=== PATIENT | male | born 2000 | race Caucasian/White ===

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

== ENCOUNTER 2024-10-23 18:14 | Emergency (ER) | payer OTHER, SELFPAY ==
--- NOTE | 2024-10-23 18:15 | ED.URI ---
HPI - URI/Sore Throat General Chief Complaint: Upper Respiratory Infection Stated Complaint: Flu Symptoms Time Seen by Provider: 10/23/24 18:15 Source: patient Mode of arrival: ambulatory Limitations: no limitations History of Present Illness HPI Narrative: Patient is a 24-year-old male who presents with nausea, vomiting and diarrhea today along with the fever. Father had influenza last week. Denies any congestion, sore throat, cough ear pain. Related Data Home Medications ?Medication ?Instructions ?Recorded ?Confirmed ?Last Taken ?Type bupropion HCl 300 mg 24 hr tablet, mg PO 10/23/24 Unknown History extended release semaglutide (weight loss) 2.4 mg subcut 10/23/24 Unknown History mg/0.75 mL subcutaneous pen injector (Wegovy) Allergies Allergy/AdvReac Type Severity Reaction Status Date / Time No Known Allergies Allergy Verified 10/23/24 18:17 Review of Systems Review of Systems: All systems reviewed & are unremarkable except as noted in HPI and below Constitutional: Constitutional: Denies body ache(s), Denies chills, Denies fatigue, Reports fever(s), Denies headache(s), Denies malaise and Denies weakness Eyes: Eyes: Denies blurry vision, Denies itchy eyes and Denies loss of vision ENT: Denies otalgia, Denies headache(s), Denies nasal congestion, Denies sinus pain and Denies sore throat Cardiovascular: Cardiovascular: Denies chest pain, Denies irregular heart rhythm and Denies dyspnea Respiratory: Respiratory: Denies cough and Denies dyspnea Gastrointestinal: Gastrointestinal: Denies abdominal pain, Reports diarrhea, Reports nausea and Reports vomiting Musculoskeletal: Musculoskeletal: Denies back pain, Denies myalgias and Denies arthralgias Integumentary/Breasts: Skin/Breast: Denies pruritus and Denies rash Neurologic: Denies headache(s), Denies loss of vision and Denies weakness Psychiatric: Psychiatric: Reports no additional psychiatric complaints Endocrine: Endocrine: Denies fatigue Allergic/Immunologic: Allergic/Immunologic: Denies itchy eyes PMFSH Past Medical History Medical History Morbid obesity with body mass index of 40.0-44.9 in adult [place] Encounter to establish care Social History Social History Social History: Caffeine-coffee/soda, energy drinks and pre-workout Smoking status: Never smoker Alcohol intake: never Do You Feel Safe in your Home?: Yes Lack of Transportation: No Lack of Food: Never True Current Housing: I Have Housing Concerned About Future Housing: No Difficulty Paying Gas/Electric Bills: No Difficulty Paying for Meds: No Currently Unemployed: No Education: High School Diploma/GED Difficulty w/ Childcare or Family Care: No Comments At time of signature, agree with nursing past medical, surgical, social and family history. There is no relevant family history pertinent to the presenting complaint. Exam Const: General: cooperative, healthy appearing, comfortable, no acute distress and well nourished Nutritional Appearance: well nourished Orientation/consciousness: patient oriented x3 Limitations: no limitations HENMT: Head: normal to inspection, normocephalic and atraumatic Ears: hearing grossly normal bilaterally, external ears normal, TM's normal bilaterally, EAC's normal and no periauricular adenopathy Face/Nose/Sinus: Normal external nose present, Abnormal mucous membranes and turbinates present erythematous bilateral and diffuse, normal facial exam, sinuses nontender and face symmetric Face and sinus: normal facial exam, sinuses nontender and face symmetric Mouth: Yes Normal oral and palatal mucosa present, Yes lip normal, Yes tongue normal, Yes Normal salivary glands and ducts present, Yes oropharynx normal and Yes moist mucous membranes Teeth and gingiva: dentition normal Throat: posterior oropharynx normal, tonsils normal and uvula midline Eyes: General: appearance normal, both eyes and all related structures Alignment and Position: alignment normal and position normal Periorbital: periorbital findings normal Eyelids: eyelids normal Pupils: Equal, round and reactive pupils present Neck: Neck: normal visual inspection, full ROM, no lymphadenopathy and supple Chest: Chest palpation & inspection: normal inspection of the chest and normal palpation of entire chest wall Resp: Effort & Inspection: normal respiratory effort and able to speak in complete sentences Auscultation: clear to auscultation bilaterally, no crackles, no rales, no rhonchi and no wheezes Cardio: Rate: tachycardic Rhythm: regular rhythm Heart sounds: S1 normal heart sound present and S2 normal heart sound present GI: Inspection: normal to inspection Skin: General skin exam: normal color and no rashes or lesions noted Neuro: General: patient oriented x3 and moves all extremities Cranial nerves: Yes Equal, round and reactive pupils present Speech: normal speech Gait exam (Neuro): Normal gait present Extrem: General: normal to inspection, full ROM and no edema Psych: Appearance: grossly normal and well kempt Mental Status: mental status grossly normal Speech and movement: Normal speech and movement present Affect: normal affect Attitude: cooperative Thought process: Normal thought process present Course Course Emergency Course: Discharge instructions reviewed with patient, as well as provided in writing per nursing staff. The instructions also include specific and strict return/GO TO THE ER as well as f/u information. All questions have been answered, and the patient deny any further questions with discharge and discharge plan. Portions of this record may have been created with voice recognition software Level of Care: Express Care Visit Vital Signs Vital signs: Vital Signs Temperature 36.6 C 10/23/24 18:28 Pulse Rate 105 H 10/23/24 18:28 Respiratory Rate 16 10/23/24 18:28 Blood Pressure 130/64 10/23/24 18:28 Pulse Oximetry 97 10/23/24 18:28 Temperature 36.6 C 10/23/24 18:28 Pulse Rate 105 H 10/23/24 18:28 Respiratory Rate 16 10/23/24 18:28 Blood Pressure 130/64 10/23/24 18:28 Pulse Oximetry 97 10/23/24 18:28 Reviewed MDM - URI/Sore Throat MDM Narrative Medical decision making narrative: Pt well hydrated appearing, in no respiratory distress, hemodynamically stable. Recommend supportive care. The patient is stable at time of discharge the clinical impression was discussed and the patient was given the opportunity to ask questions, which were addressed as completely as possible given the information available at present. Anticipatory guidance and return to care precautions were discussed and the importance of primary care follow-up was stressed and encouraged. The patient voiced understanding of the plan, indications to return, and the need for follow-up. Differential diagnosis considered: Tran virus, strep pharyngitis, allergic rhinitis, upper respiratory tract infection, sinusitis, rhinosinusitis, nasopharyngitis. viral pharyngitis, otitis media, otitis externa, otitis effusion, foreign body, cerumen impaction, viral syndrome, and influenza.? Exam findings show no acute concerns or changes; patient is non-toxic appearing and is in no distress.? Patient is appropriate for outpatient treatment and follow-up.? Differential Diagnosis Differential diagnosis: Likely other (Gastroenteritis) Medical Records Attestation: I reviewed the patient's medical records. Lab Data Attestation: I reviewed the patient's lab results. Labs: Lab Results 10/23/24 Range/Units 18:42 POC Influenza A Ag Negative (Negative) POC Influenza B Ag Negative (Negative) POC SARS CoV-2 Ag Negative (Negative) Discharge Plan Discharge Clinical Impression: Gastroenteritis Patient Disposition: Home, Self-Care Condition: Stable Instructions: Gastroenteritis (ED) Additional Instructions: Stay hydrated. Take small sips of fluid containing electrolytes frequently(Body [place], Gatorade, Powerade, liquid IV). Eat small meals that her very bland including bananas, applesauce, rice, toast, boiled or grilled chicken, soup. Do not eat anything fried, spicy or overly acidic. You should go to the hospital if you experience return of persistent nausea and vomiting that does not resolve and does not allow you to tolerate any food or fluids, persistent fevers for greater than 2-3 more days, increasing abdominal pain that persists despite medications, persistent diarrhea, dizziness, syncope (fainting), or for any other concerns. Patient Language: Lithuanian Prescriptions: New dicyclomine 20 mg tablet 20 mg PO QID 7 Days Qty: 28 0RF ondansetron 4 mg tablet,disintegrating 4 mg PO Q6-8H PRN (Reason: nausea and vomiting) Qty: 7 0RF No Action bupropion HCl 300 mg tablet extended release 24 hr PO Wegovy 2.4 mg/0.75 mL pen injector SUBCUT sertraline 100 mg tablet 200 mg PO DAILY Qty: 180 1RF Follow-up/Referrals: Anson Aleman DO [Primary Care Provider] - 3 Days Stand Alone Forms: Work/School Release IP Time of Disposition: 18:55
[2024-10-23 18:28] VITALS: BP 130/64; PULSE 105; RESP 16; TEMP 36.6; O2SAT 97
[2024-10-23 18:43] LABS: EDCOVIDSCREEN Negative (Negative); EDINFLUASCREEN Negative (Negative); EDINFLUBSCREEN Negative (Negative)
== END 2024-10-23 18:57 | disposition home or self-care (01) ==
PROVIDERS: Emergency Provider Nurse Practitioner Family; PCP Internal Medicine
DX: K52.9 Noninfective gastroenteritis and colitis, unspecified (principal); Z20.822 Contact with and (suspected) exposure to COVID-19; E66.01 Morbid (severe) obesity due to excess calories; Z68.41 Body mass index [BMI] 40.0-44.9, adult
CPT/HCPCS: 87426; 87804; 99213; G0463

== ENCOUNTER 2024-11-20 14:28 | Emergency (ER) | payer OTHER, SELFPAY ==
[2024-11-20 14:30] VITALS: BP 129/83; PULSE 86; RESP 21; TEMP 36.7; O2SAT 99
--- NOTE | 2024-11-20 14:31 | ED_ITS ---
HPI - URI/Sore Throat General Chief Complaint: Upper Respiratory Infection Stated Complaint: Flu Symptoms Source: patient and RN notes reviewed Mode of arrival: ambulatory Limitations: no limitations History of Present Illness HPI Narrative: Patient is a 24-year-old male who presents to the [facility] with multiple complaints. Patient reports congestion, cough, and fever that has been ongoing since yesterday. He endorses a frequent nonproductive cough that is occasionally productive with green sputum. States that he will have intermittent shortness of breath with the cough. Denies chest pain. Patient a lso endorses generalized body aches, headache, and sore throat. He is unsure of any known sick contacts. Related Data Home Medications ?Medication ?Instructions ?Recorded ?Confirmed ?Last Taken ?Type bupropion HCl 300 mg 24 hr tablet, mg PO 10/23/24 Unknown History extended release Allergies Allergy/AdvReac Type Severity Reaction Status Date / Time No Known Allergies Allergy Verified 11/20/24 14:30 Review of Systems Review of Systems: CONSTITUTIONAL: Reports fever, chills, and sweats. EYES: Denies visual changes, redness, or discharge. ENT: Denies otalgia. Reports sore throat. CARDIOVASCULAR: Denies chest pain, palpitations, or edema. RESPIRATORY: Reports cough and intermittent dyspnea. GASTROINTESTINAL: Denies abdominal pain, nausea, vomiting, or diarrhea. GENITOURINARY: Denies dysuria or hematuria. SKIN: Denies rash or itching. MUSCULOSKELETAL: Denies back pain, joint pain, but reports myalgia. NEUROLOGIC: Reports headache but denies numbness or weakness. Pertinent positives per HPI. [facility] Past Medical History Medical History Morbid obesity with body mass index of 40.0-44.9 in adult [place] Encounter to establish care Social History Social History Social History: Caffeine-coffee/soda, energy drinks and pre-workout Smoking status: Never smoker Alcohol intake: never Do You Feel Safe in your Home?: Yes Lack of Transportation: No Lack of Food: Never True Current Housing: I Have Housing Concerned About Future Housing: No Difficulty Paying Gas/Electric Bills: No Difficulty Paying for Meds: No Currently Unemployed: No Education: High School Diploma/GED Difficulty w/ Childcare or Family Care: No Comments At the time of my signature, I reviewed and agree with the nursing past medical, surgical, social, and family history. There is no relevant family history pertinent to the patient complaint. Exam Narrative: GENERAL: This is a well-nourished, well-developed patient, in no apparent distress. HEAD: normocephalic, atraumatic. EYES: Sclera clear/white. Vision is grossly intact. EARS: External ears normal. Hearing grossly intact. NOSE: External nose normal with no obvious nasal discharge, nares without redness, no rhinorrhea. THROAT: Mucous membranes moist, posterior pharynx clear. NECK: Neck supple, non-tender without lymphadenopathy, masses or thyromegaly. CARDIOVASCULAR: Regular rate and rhythm without murmurs, gallops, or rubs. RESPIRATORY: Clear to auscultation. Breath sounds equal bilaterally. No wheezes, rales, or rhonchi. GASTROINTESTINAL: Abdomen soft, non-tender, nondistended. Bowel sounds are active. No hepato-splenomegaly, or palpable masses. No guarding. SKIN: warm, intact with no suspicious lesions or rash, good texture and turgor. NEURO: awake, alert, and oriented to person, place and time. There were no obvious focal neurologic abnormalities. Course Course Level of Care: Express Care Visit Vital Signs Vital signs: Vital Signs Temperature 98.1 F 11/20/24 14:30 Pulse Rate 86 11/20/24 14:30 Respiratory Rate 21 H 11/20/24 14:30 Blood Pressure 129/83 11/20/24 14:30 Pulse Oximetry 99 11/20/24 14:30 Oxygen Delivery Room Air 11/20/24 14:30 Temperature 98.1 F 11/20/24 14:30 Pulse Rate 86 11/20/24 14:30 Respiratory Rate 21 H 11/20/24 14:30 Blood Pressure 129/83 11/20/24 14:30 Pulse Oximetry 99 11/20/24 14:30 Oxygen Delivery Room Air 11/20/24 14:32 Reviewed MDM - URI/Sore Throat MDM Narrative Medical decision making narrative: COVID-19 DISCHARGE The following recommendations have been made by the CDC and local Health Departments, regarding COVID-19: If You Test Positive for COVID-19 (Isolate) Everyone, regardless of vaccination status. Stay home for 5 days. If you have no symptoms or your symptoms are resolving after 5 days, you can leave your house. Continue to wear a mask around others for 5 additional days. If you have a fever, continue to stay home until your fever resolves. Those individuals with mild cases of COVID-19 can generally be discontinued from isolation, 10 days AFTER the onset of symptoms AND the resolution of fever for 24hrs (without the use of fever-reducing medications) Those individuals who were asymptomatic, and tested positive, are discontinued from isolation 10 days AFTER their first positive COVID-19 test Those individuals with SEVERE to CRITICAL illness or immunocompromised diseases may require up to 20 days of home isolation or hospitalization Majority of mild to moderate cases can be treated at home, without hospitalization or prescription medications You do not need a negative test result to return to work/school, assuming the ab ove recommendations have been met and you are not symptomatic. At this time, return to work/school notes will not be provided. Guidelines from the local Health Department, CDC, and workplace are expected to be followed. All individuals in the household need to remained quarantined for up to 14 days if asymptomatic OR 10 days after the start of symptoms. Everyone in the home DOES NOT require testing, they are presumed positive and should quarantine as directed. Treating symptoms for mild to moderate cases may include: Tylenol, Flonase/nasal spray, OTC cold/flu medications recommended from your provider or any necessary prescription medications provided at your visit or from your PCP You may be sent for PCR testing as an outpatient to the [place] testing site Common Adult Symptoms: Fever/chills Cough Shortness of breath Fatigue, muscle aches Headache Loss of taste/smell Sore throat, congestion, runny nose GI symptoms (nausea, vomiting, diarrhea) Common Pediatric Symptoms Cough Fever GI symptoms (diarrhea, upset stomach, nausea, vomiting) Symptoms may differ in severity however, most cases do not require hospitalization. WHEN TO SEEK ER EVALUATION/TREATMENT Severe/persistent shortness of breath or difficulty breathing Elevated, persistent fevers without resolution with fever-reducing medications Chest pain Extreme fatigue/lethargy Complications of pre-existing disease Differential Diagnosis Differential diagnosis: Likely upper respiratory infection, viral infection, influenza and other (covid) Lab Data Attestation: I reviewed the patient's lab results. Labs: Lab Results 11/20/24 11/20/24 Range/Units 14:45 14:46 POC Influenza A Ag Negative (Negative) POC Influenza B Ag Negative (Negative) POC SARS CoV-2 Ag Positive (Negative) Critical Care Time Critical Care Time Critical Care Time: No Discharge Plan Discharge Clinical Impression: COVID Patient Disposition: Home, Self-Care Condition: Stable Instructions: COVID-19 (Coronavirus Disease 2019) (ED) Additional Instructions: COVID-19 DISCHARGE The following recommendations have been made by the CDC and local Health Departments, regarding COVID-19: If You Test Positive for COVID-19 (Isolate) Everyone, regardless of vaccination status. Stay home for 5 days. If you have no symptoms or your symptoms are resolving after 5 days, you can leave your house. Continue to wear a mask around others for 5 additional days. If you have a fever, continue to stay home until your fever resolves. Those individuals with mild cases of COVID-19 can generally be discontinued from isolation, 10 days AFTER the onset of symptoms AND the resolution of fever for 24hrs (without the use of fever-reducing medications) Those individuals who were asymptomatic, and tested positive, are discontinued from isolation 10 days AFTER their first positive COVID-19 test Those individuals with SEVERE to CRITICAL illness or immunocompromised diseases may require up to 20 days of home isolation or hospitalization Majority of mild to moderate cases can be treated at home, without hospitalization or prescription medications You do not need a negative test result to return to work/school, assuming the above recommendations have been met and you are not symptomatic. At this time, return to work/school notes will not be provided. Guidelines from the local Health Department, CDC, and workplace are expected to be followed. All individuals in the household need to remained quarantined for up to 14 days if asymptomatic OR 10 days after the start of symptoms. Everyone in the home DOES NOT require testing, they are presumed positive and should quarantine as directed. Treating symptoms for mild to moderate cases may include: Tylenol, Flonase/nasal spray, OTC cold/flu medications recommended from your provider or any necessary prescription medications provided at your visit or from your PCP You may be sent for PCR testing as an outpatient to the [facility] site Common Adult Symptoms: Fever/chills Cough Shortness of breath Fatigue, muscle aches Headache Loss of taste/smell Sore throat, congestion, runny nose GI symptoms (nausea, vomiting, diarrhea) Common Pediatric Symptoms Cough Fever GI symptoms (diarrhea, upset stomach, nausea, vomiting) Symptoms may differ in severity however, most cases do not require hospitalization. WHEN TO SEEK ER EVALUATION/TREATMENT Severe/persistent shortness of breath or difficulty breathing Elevated, persistent fevers without resolution with fever-reducing medications Chest pain Extreme fatigue/lethargy Complications of pre-existing disease Patient Language: Irish Prescriptions: No Action bupropion HCl 300 mg tablet extended release 24 hr PO sertraline 100 mg tablet 200 mg PO DAILY Qty: 180 1RF Zepbound 7.5 mg/0.5 mL pen injector 7.5 mg subcut WEEKLY Qty: 2 0RF Follow-up/Referrals: Lillian Crowley, [employer] [Primary Care Provider] - Stand Alone Forms: Work/School Release IP Time of Disposition: 15:08
[2024-11-20 14:47] LABS: EDCOVIDSCREEN Positive (Negative)
[2024-11-20 14:48] LABS: EDINFLUASCREEN Negative (Negative); EDINFLUBSCREEN Negative (Negative)
== END 2024-11-20 15:11 | disposition home or self-care (01) ==
PROVIDERS: Emergency Provider Nurse Practitioner; PCP Clinical Nurse Specialist
DX: U07.1 COVID-19 (principal); E66.01 Morbid (severe) obesity due to excess calories; Z68.38 Body mass index [BMI] 38.0-38.9, adult
CPT/HCPCS: 87426; 87804; 99212; G0463

== ENCOUNTER 2025-01-18 00:49 | Day surgery (SDC) | payer OTHER, SELFPAY ==
[2025-01-10 13:11] VITALS: BMI 38.0
--- NOTE | 2025-01-10 13:18 | PC.NURSE ---
Report to the Outpatient Waiting Room, entrance under the green pavilion located off [facility], at time _1000_ on date _[id number]_. Planned Procedure Time: _1200_.? Time changes happen often and if your time is changed the preop area will call you the afternoon before. - You and your visitor will be asked to self-screen and do not enter if you have any COVID symptoms. Please call surgeon if you need to reschedule. - A mask is optional within the hospital at this time. Patients may have clear liquids (water, carbonated beverages, clear teas, apple juice) until 3 hours prior to surgery with a maximum of 20 ounces. - No food from midnight until time of surgery and no smoking, or chewing tobacco (or any form of nicotine). No chewing gum, candy or mints. Take only the following medications with a SIP of water on the morning of surgery: __Bupropion and Lamotragine DO NOT STOP ANY OF YOUR OTHER PRESCRIPTION MEDICATIONS PRIOR TO SURGERY EXCEPT THE FOLLOWING Hold all vitamins and supplements for 3 days per anesthesiologist. Medications to discontinue per physician __Wegovy Date to take last dose___Hold until after surgery____ Please no make-up, nail setswana, hairspray, perfume, deodorant, or body powder the day of surgery.? No jewelry (including any body piercings) or valuables the day of surgery, leave them at home.? Please take a shower or bath the night before, or the morning of, surgery with an antibacterial soap.? Wear comfortable, loose fitting clothing.? - Jewelry must be removed prior to entering the operating room.? Rings and piercings that are not removed may be cut off. - The hospital will not accept responsibility for valuables.? - Please leave all valuables, including medications, at home the day of surgery. If you are going home after surgery, a licensed charter bus driver must drive you home.? - NO public transportation without another adult if you receive anesthesia. - We recommend that an adult stay with you for 24 hours following discharge. - We also recommend that you do not drive, make important decision, drink alcoholic beverages, or take any drugs that were not prescribed by your health care provider for at least 24 hours after your discharge time. Follow any additional instructions given to you from your surgeon. Telephone instructions given to __Ori___and asked if any additional questions and then verbalized understanding. Patient advised to call surgeon office or pre surgery nurse liaison [phone] if any additional questions.
[2025-01-18] VITALS (9 sets, daily range): BP systolic 109–141; BP diastolic 53–80; PULSE 78–99; RESP 15–20; TEMP 36.3–36.5; O2SAT 97–100
--- OUTSIDE RECORDS SUMMARY | 2025-01-18 00:51 | XMS_ITS | Patient Health Record ---
Author Organization [facility] Address [address] [facility] [address] [place] [address] Care Team Providers Care Gambling Floor Supervisor Name Role Phone JUAN DUNCAN-RATNA Forbes Primary Care Provider Martinez Wong Unavailable [phone] Allergies No Known Allergies Results Component Value Reference Range Notes UDT Reviewed date:07/06/2024 05:03:32 PM Interpretation: Performing Lab: Notes/Report: THC Positive 0 - 50 ng/ml Cocaine Negative 0 - 300 ng/ml Amphetamine Negative 0 - 1000 ng/ml Buprenorphine (BUP) Negative 0 - 10 ng/ml Secobarbital (Bar) Negative 0 - 300 ng/ml Oxazepam (BZO) Negative 0 - 300 ng/ml 0-irsrpmpzjb-2,8-plttmjmf-1, 3-dipheny lpyrrolidine (EDDP) Negative 0 - 300 ng/ml Methamphetamine (MET) Negative 0 - 1000 ng/ml Methylenedioxymethamphetamine (MDMA) Negative 0 - 500 ng/ml Morphine (MOP 300/[id number]) Negative 0 - 300 ng/ml Methadone (MTD) Negative 0 - 300 ng/ml Phencyclidine (PCP) Negative 0 - 25 ng/ml Nortriptyline (TCA) Negative 0 - 1000 ng/ml Oxycodone Negative 0 - 300 ng/ml x Negative 0 - 300 ng/ml UDT Reviewed date:08/02/2024 04:43:39 PM Interpretation: Performing Lab: Notes/Report: THC POS 0 - 50 ng/ml Cocaine NEG 0 - 300 ng/ml Amphetamine NEG 0 - 1000 ng/ml Buprenorphine (BUP) NEG 0 - 10 ng/ml Secobarbital (Bar) NEG 0 - 300 ng/ml Oxazepam (BZO) NEG 0 - 300 ng/ml 7-kzlgpdnkhd-0,6-izlkrlni-5, 3-dipheny lpyrrolidine (EDDP) NG 0 - 300 ng/ml Methamphetamine (MET) NEG 0 - 1000 ng/ml Methylenedioxymethamphetamine (MDMA) NEG 0 - 500 ng/ml Morphine (MOP 300/[id number]) NEG 0 - 300 ng/ml Methadone (MTD) NEG 0 - 300 ng/ml Phencyclidine (PCP) NEG 0 - 25 ng/ml Nortriptyline (TCA) NEG 0 - 1000 ng/ml Oxycodone NEG 0 - 300 ng/ml x NEG 0 - 300 ng/ml DRUG MONITOR, MARIJUANA META B, QN, URINE ([id number]) Reviewed date:11/20/2024 03:56:56 PM Interpretation: Performing Lab:[facility], [facility] [address] [facility]esfaye villatoroOgrcWK[address] Ramin Grajeda, Director - [id number] [address]-Webber Notes/Report: FASTING: NO Marijuana Metabolite 10 <5 ng/mL Marijuana Comments See Sherri randolph Notes, LDT Notes Notes and Comments This drug testing is for medical treatment only. Analysis was performed as non-forensic testing and these results should be used only by healthcare providers to render diagnosis or treatment, or to monitor progress of medical conditions. Marijuana Notes: Marijuana Metabolite detected is consistent with exposure to Marijuana (THC) and/or hemp derived products. Some jurisdictions do not include hemp within the definition of Marijuana. LDT Notes: Confirmation tests were developed and their analytical performance characteristics have been determined by [facility]. It has not been cleared or approved by the FDA. This assay has been validated pursuant to the CLIA regulations and is used for clinical purposes. Healthcare Providers needing Interpretation assistance, please contact us at [phone] ( ) M-F, 8am to 10pm EST Reason For Referral No Information Medications Medication SIG (Take, Route, Frequency, Duration) Notes Start Date End Date Status buPROPion HCl ER (XL) 300 MG 1 tablet in the morning Orally Once a day for 90 days Active Wegovy 2.4 MG/0.75ML 0.75 mL Subcutaneou s weekly Active lamoTRIgine 100 MG 1 tablet Orally Once a day for 30 days Active hydrOXYzine Pamoate 25 MG 1 capsule Orally Once a day As needed Active Social History Tobacco Use: Social History Observation Description Date Details (start date - stop date) Never Smoker 08/16/2024 - NA Sex Assigned At : Social History Observation Description Sex Assigned At Male Tobacco Control (Standard) Question Answer Notes Tobacco use: Nonsmoker When did you start smoking? 08/16/2024 AUDIT-C (Standard) Question Answer Notes Did you have a drink contain ing alcohol in the past year? Yes How often did you have six o r more drinks on one occasion in the past year? 2 to 3 times per week (3 points) How many drinks did you have on a typical day when you were drinking in the past year? 5 or 6 drinks (2 points) How often did you have a dri nk containing alcohol in the past year? Daily or almost daily (4 points) Points 9 Interpretation Negative Problems Problem Type SNOMED Code ICD Code Onset Dates Problem Status W/U Status Risk Notes Problem Generalized anxiety disorder (84673669) EFE (generalized anxiety disorder) (F41.1) Active confirmed Problem 78377342 Severe episode of recurrent major depressive disorder, without psychotic features (F33.2) Active confirmed Problem 05506301 MDD (major depressive disorder), recurrent episode, moderate (F33.1) Active confirmed Problem 164088751 MDD (major depressive disorder), recurrent episode, mild (F33.0) Active confirmed Problem 88431231 MDD (recurrent major depressive disorder) in remission (F33.40) Active confirmed Problem 602677903 Marijuana use (F12.90) Active confirmed Problem 12942447 Anxiety (F41.9) Active confirmed Problem Severe major depression, single episode, without psychotic features (71473093) MDD (major depressive disorder), severe (F32.2) Active confirmed Vital Signs Heart Rate 81 /min 01/01/2025 Temperature 97.7 degrees Fahrenheit 07/06/2024 Blood pressure diastolic 70 mm Hg 01/01/2025 Weight-kg 150.32 kg 01/01/2025 Blood pressure systolic 111 mm Hg 01/01/2025 Weight 331.4 lbs 01/01/2025 Encounters Encounter Location Date Provider Diagnosis [facility] [employer] [facility] [address] [address] 07/06/2024 Martinez Zaldivar EFE (generalized anxiety disorder) F41.1 ; MDD (major depressive disorder), severe F32.2 and Marijuana use F12.90 [facility] [employer] [facility], [facility] [address] [place] [address] 07/23/2024 Martinez Clubb EFE (generalized anxiety disorder) F41.1 and MDD (major depressive disorder), severe F32.2 [facility] [employer] [facility] [address] [place] [address] 08/02/2024 Martinez Clubb EFE (generalized anxiety disorder) F41.1 and MDD (major depressive disorder), recurrent episode, moderate F33.1 [facility] [employer] [facility] [address] [place] [address] 08/22/2024 Martinez Clubb MDD (major depressiv e disorder), recurrent episode, moderate F33.1 and Anxiety F41.9 [facility] [employer] [facility], [facility] [address] [place] [address] 09/20/2024 Martinez Clubb MDD (recurrent major depressive disorder) in remission F33.40 and Anxiety F41.9 [facility] [employer] [facility] [address] [place] [address] 11/08/2024 Martinez Clubb Severe episode of recurrent major depressive disorder, without psychotic features F33.2 ; Suicidal ideations R45.851 and Anxiety F41.9 [facility] [employer] [facility] [address] [place] [address] 11/14/2024 Martinez Clubb Anxiety F41.9 and MD D (major depressive disorder), recurrent episode, mild F33.0 [facility] [employer] [facility] [address] [place] [address] 12/04/2024 Martinez Clubb Anxiety F41.9 and MD D (major depressive disorder), recurrent episode, mild F33.0 [facility] [employer] [facility] [address] [place] [address] 01/01/2025 Martinez Clubb Encounter for screening for depression Z13.31 ; Anxiety F41.9 and MDD (major depressive disorder), recurrent episode, mild F33.0 [facility] [employer] [facility] [address] [place] [address] 07/28/2024 Martinez Clubb [employer] [facility] [address] [place] [address] 07/29/2024 Martinez Clubb [facility] [address] [place] [address] 07/30/2024 Martinez Clubb [facility] [address] [place] [address] 07/30/2024 Martinez Clubb [facility] [address] [place] [address] 07/30/2024 Martinez Clubb [facility] [address] [place] [address] 09/04/2024 Martinez Clubb [facility] [address] [place] [address] 09/04/2024 Martinez Clubb [facility], [facility] [address] [place] [address] 09/04/2024 Martinez Clubb [facility] [address] [place] [address] 10/23/2024 Martinez Clubb [facility], [facility] [address] [place] [address] 10/30/2024 Martinez Clubb [facility] [address] [place] [address] 10/30/2024 [facility] [address] [place] [address] 11/06/2024 Martinez Clubb [facility] [address] [place] [address] 11/06/2024 Martinez Clubb [facility] [address] [place] [address] 11/08/2024 Martinez Clubb [facility] [address] [place] [address] 11/08/2024 Martinez Clubb [facility] [address] [place] [address] 11/08/2024 Martinez Clubb [facility] [address] [place] [address] 11/14/2024 Martinez Clubb [facility], [facility] [address] [place] [address] 12/22/2024 Martinez Clubb MDD (major depressiv e disorder), recurrent episode, mild F33.0 [facility] [employer] [facility] [address] [place] [address] 12/24/2024 Martinez Clubb [facility] [employer] [facility] [address] [place] [address] 12/31/2024 Martinez Fitzgerald Assessments Encounter Date Diagnosis (ICD Code) Assessment Notes Treatment Notes Treatment Clinical Notes Section Notes 07/06/2024 EFE (generalized anxiety disorder) (ICD-10 - F41.1) 1. Generalized Anxiety Disorder (EFE) - Current anxiety level: 07/19 - Panic attacks: four in the past week - Plan: a. Continue sertraline 200 mg daily b. Start propranolol 10 mg as needed, up to three times a day for anxiety management - Instruct to check pulse before taking propranolol; if below 60 bpm, do not take c. Encourage use of hydroxyzine HCL during initiation of anxiety to prevent panic attacks 2. Major Depressive Disorder (MDD) - Current depression level: 07/19 - Symptoms: hypersomnia, loss of appetite, difficulty concentrating, irritability, passive suicidal thoughts, self-harm (cutting leg two weeks ago) - Plan: a. Restart bupropion at 75 mg short-acting daily b. Gradually increase bupropion dose as tolerated c. Monitor for irritability and depressive symptoms d. If irritability recurs, consider switching to Rexulti 3. Family History of Mental Health Issues - Mother, sister, and grandmother with EFE and depression - Plan: Instruct patient to gather information on family members' medications to guide treatment 4. Substance Use - Marijuana use: almost every night from dispensary and vape shop - Alcohol use: occasional - No new substance use reported - Plan: Monitor substance use and discuss potential impact on mental health 5. Medication Management - Currently on Wegovy for over a year - Recently discontinued bupropion due to irritability and increased depressive symptoms - Plan: Reassess medication effectiveness and side effects at follow-ups Follow-up: - Schedule follow-up in two weeks to assess response to medication adjustments and monitor symptoms - Encourage use of Leeo yoselin for direct provider communication 11/14/2024 MDD (major depressive disorder), recurrent episode, mild (ICD-10 - F33.0) Lamotrigine may cause rashes, including serious rashes that may need to be treated in a hospital or cause permanent disability or . Tell your doctor if you are taking valproic acid (Depakene) or divalproex (Depakote) because taking these medications with lamotrigine may increase your risk of developing a serious rash. Also tell your doctor if you have ever developed a rash after taking lamotrigine or any other medication for epilepsy or if you are allergic to any medications for epilepsy. Your doctor will start you on low dose of lamotrigine and gradually increase your dose, not more than once every 1 to 2 weeks. You may be more likely to develop a serious rash if you take a higher starting dose or increase your dose faster than your doctor tells you that you should. Your first doses of medication may be packaged in a starter kit that will clearly show you the right amount of medication to take each day during the first 5 weeks of your treatment. This will help you to follow your doctor's instructions as your dose is slowly increased. Be sure to take lamotrigine exactly as directed. Do not take more or less of it or take it more often than prescribed by your doctor. Serious rashes usually develop during the first 2 to 8 weeks of treatment with lamotrigine, but can develop at any time during treatment. If you develop any of the following symptoms while you are taking lamotrigine, call your doctor immediately: rash; blistering or peeling of the skin; hives; itching; or painful sores in your mouth or around your eyes. Talk to your doctor about the risks of taking lamotrigine or of giving lamotrigine to your child. Children 2-17 years of age who take lamotrigine are more likely to develop serious rashes than adults who take the medication. Your doctor or pharmacist will give you the visual presentation manager's patient information sheet (Medication Guide) when you begin treatment with lamotrigine and each time you refill your prescription. Read the information carefully and ask your doctor or pharmacist if you have any questions. You can also visit the Food and Drug Administration (FDA) website (https://www.fda .gov/Drugs/DrugS afety/ktm644724. htm) or the visual presentation manager's website to obtain the Medication Guide. Assessment and plan reviewed with patient Call for problems with medication, side effects or need for dosage change Compliance issues reviewed Discussed the risks/benefits of this medication Discussed medication side effects Return if symptoms worsen Treatment options reviewed. discussed that it can take weeks to see full therapeutic effects of psychotropic medications. discussed when to seek emergency services. discussed crisis prevention hotline [phone]. Patient had reduction in suicidal ideation and/or behavior upon follow-up assessment within 120 days of index assessment (M1357) 11/14/2024 Anxiety (ICD-10 - F41.9) Patient had reduction in suicidal ideation and/or behavior upon follow-up assessment within 120 days of index assessment (M1357) 07/06/2024 MDD (major depressive disorder), severe (ICD-10 - F32.2) 1. Generalized Anxiety Disorder (EFE) - Current anxiety level: 07/19 - Panic attacks: four in the past week - Plan: a. Continue sertraline 200 mg daily b. Start propranolol 10 mg as needed, up to three times a day for anxiety management - Instruct to check pulse before taking propranolol; if below 60 bpm, do not take c. Encourage use of hydroxyzine HCL during initiation of anxiety to prevent panic attacks 2. Major Depressive Disorder (MDD) - Current depression level: 07/19 - Symptoms: hypersomnia, loss of appetite, difficulty concentrating, irritability, passive suicidal thoughts, self-harm (cutting leg two weeks ago) - Plan: a. Restart bupropion at 75 mg short-acting daily b. Gradually increase bupropion dose as tolerated c. Monitor for irritability and depressive symptoms d. If irritability recurs, consider switching to Rexulti 3. Family History of Mental Health Issues - Mother, sister, and grandmother with EFE and depression - Plan: Instruct patient to gather information on family members' medications to guide treatment 4. Substance Use - Marijuana use: almost every night from dispensary and vape shop - Alcohol use: occasional - No new substance use reported - Plan: Monitor substance use and discuss potential impact on mental health 5. Medication Management - Currently on Wegovy for over a year - Recently discontinued bupropion due to irritability and increased depressive symptoms - Plan: Reassess medication effectiveness and side effects at follow-ups Follow-up: - Schedule follow-up in two weeks to assess response to medication adjustments and monitor symptoms - Encourage use of Leeo yoselin for direct provider communication 07/23/2024 EFE (generalized anxiety disorder) (ICD-10 - F41.1) 1. Major Depressive Disorder - PHQ-9 score improved from 22 to 16. - Positive response to bupropion 75mg and sertraline 200mg adjustment. - Patient reports symptom improvement since reducing stress. - Plan: a. Continue current medications. b. Reassess in 4 weeks. c. Encourage healthy coping strategies and family time. d. Instruct contacting provider or texting [phone] if suicidal thoughts occur. 2. Generalized Anxiety Disorder - EFE score improved from 19 to 17. - Positive response to medication with only 1 panic attack. - - Plan: a. Continue current medications. b. Reassess in 4 weeks. c. Encourage healthy coping like reduced screen/social media time. d. Instruct contacting provider if anxiety worsens or panic attacks increase. 3. Insomnia - Patient reports difficulty with sleep onset and duration. - Melatonin ineffective. - Plan: a. Try hydroxyzine for sleep and combine with melatonin. b. Message provider on yoselin if sleep aid needed. c. Reassess sleep in 4 weeks. 4. Substance Use - Patient ceased marijuana use. - Occasional alcohol use (twice in 2 weeks). - Plan: a. Encourage continued marijuana abstinence. b. Monitor alcohol consumption. c. Discuss importance of sobriety with [facility]'s zero-tolerance policy. 5. Sexual Dysfunction - Patient reports low sex drive and difficulty performing. - Likely due to sertraline and possibly propranolol. - Plan: a. Avoid propranolol if planning for sexual activity. b. Consider Vistaril instead for anxiety. c. Monitor sexual function and discuss potential med adjustments if persists. 6. Follow-Up - Schedule follow-up in 4 weeks to reassess symptoms, medication effectiveness and overall progress. - Patient can come in sooner if needed without appointment.. Patient had reduction in suicidal ideation and/or behavior upon follow-up assessment within 120 days of index assessment (M1357) 07/23/2024 MDD (major depressive disorder), severe (ICD-10 - F32.2) 1. Major Depressive Disorder - PHQ-9 score improved from 22 to 16. - Positive response to bupropion 75mg and sertraline 200mg adjustment. - Patient reports symptom improvement since reducing stress. - Plan: a. Continue current medications. b. Reassess in 4 weeks. c. Encourage healthy coping strategies and family time. d. Instruct contacting provider or texting [phone] if suicidal thoughts occur. 2. Generalized Anxiety Disorder - EFE score improved from 19 to 17. - Positive response to medication with only 1 panic attack. - - Plan: a. Continue current medications. b. Reassess in 4 weeks. c. Encourage healthy coping like reduced screen/social media time. d. Instruct contacting provider if anxiety worsens or panic attacks increase. 3. Insomnia - Patient reports difficulty with sleep onset and duration. - Melatonin ineffective. - Plan: a. Try hydroxyzine for sleep and combine with melatonin. b. Message provider on yoselin if sleep aid needed. c. Reassess sleep in 4 weeks. 4. Substance Use - Patient ceased marijuana use. - Occasional alcohol use (twice in 2 weeks). - Plan: a. Encourage continued marijuana abstinence. b. Monitor alcohol consumption. c. Discuss importance of sobriety with [facility] zero-tolerance policy. 5. Sexual Dysfunction - Patient reports low sex drive and difficulty performing. - Likely due to sertraline and possibly propranolol. - Plan: a. Avoid propranolol if planning for sexual activity. b. Consider Vistaril instead for anxiety. c. Monitor sexual function and discuss potential med adjustments if persists. 6. Follow-Up - Schedule follow-up in 4 weeks to reassess symptoms, medication effectiveness and overall progress. - Patient can come in sooner if needed without appointment.. Patient had reduction in suicidal ideation and/or behavior upon follow-up assessment within 120 days of index assessment (M1357) 08/02/2024 EFE (generalized anxiety disorder) (ICD-10 - F41.1) 1. Major Depressive Disorder - He reports more good days, but bad days still as severe. - Depression rated at 6 out of 10. - Plan: a. Decrease sertraline to 150mg daily for 2 weeks, then to 100mg daily. b. Reassess at next appointment on August 21. 2. Anxiety - Anxiety rated at 4-5 out of 10. - Propranolol not effective for high anxiety moments, only preventing panic attacks. - Plan: a. Discontinue propranolol. b. Continue hydroxyzine for anxiety and sleep. 3. Insomnia - He reports improvement in sleep. - Plan: Continue hydroxyzine as needed for sleep. 4. Sexual Side Effects - He suspects sertraline as the cause. - Plan: a. Monitor effects of reduced sertraline dosage on sexual side effects. b. Consider further reduction or discontinuation if side effects persist. 5. Panic Attacks - He reports experiencing panic attacks. - Plan: Monitor effects of discontinuing propranolol on panic attacks. 6. Difficulty Concentrating - He reports difficulty concentrating. - Plan: Monitor effects of medication adjustments on concentration. 7. Irritability - He reports irritability. - Plan: Monitor effects of medication adjustments on irritability. 8. Medication Refills - Plan: Refill hydroxyzine and sertraline prescriptions. Send to [facility]. 9. Crisis Management - Plan: Remind him of crisis hotline (143) for suicidal thoughts or emergencies. 10. Follow-Up - Appointment scheduled for August 21 to reassess progress and medication adjustments. 08/02/2024 MDD (major depressive disorder), recurrent episode, moderate (ICD-10 - F33.1) Assessment and plan reviewed with patient Call for problems with medication, side effects or need for dosage change Compliance issues reviewed Discussed the risks/benefits of this medication Discussed medication side effects Return if symptoms worsen Treatment options reviewed. discussed that it can take weeks to see full therapeutic effects of psychotropic medications. discussed when to seek emergency services. discussed crisis prevention hotline [phone]. 1. Major Depressive Disorder - He reports more good days, but bad days still as severe. - Depression rated at 6 out of 10. - Plan: a. Decrease sertraline to 150mg daily for 2 weeks, then to 100mg daily. b. Reassess at next appointment on August 21. 2. Anxiety - Anxiety rated at 4-5 out of 10. - Propranolol not effective for high anxiety moments, only preventing panic attacks. - Plan: a. Discontinue propranolol. b. Continue hydroxyzine for anxiety and sleep. 3. Insomnia - He reports improvement in sleep. - Plan: Continue hydroxyzine as needed for sleep. 4. Sexual Side Effects - He suspects sertraline as the cause. - Plan: a. Monitor effects of reduced sertraline dosage on sexual side effects. b. Consider further reduction or discontinuation if side effects persist. 5. Panic Attacks - He reports experiencing panic attacks. - Plan: Monitor effects of discontinuing propranolol on panic attacks. 6. Difficulty Concentrating - He reports difficulty concentrating. - Plan: Monitor effects of medication adjustments on concentration. 7. Irritability - He reports irritability. - Plan: Monitor effects of medication adjustments on irritability. 8. Medication Refills - Plan: Refill hydroxyzine and sertraline prescriptions. Send to [facility]. 9. Crisis Management - Plan: Remind him of crisis hotline (185) for suicidal thoughts or emergencies. 10. Follow-Up - Appointment scheduled for August 21 to reassess progress and medication adjustments. 08/22/2024 MDD (major depressive disorder), recurrent episode, moderate (ICD-10 - F33.1) 1. Depression - PHQ decreased from 22 on 07/06/24 to 11 on 08/22/24. - patient denied suicidal thoughts or thoughts of self-harm - patient reported an improvement in mood since initiation of treatment. plan: continue to maddison off sertraline r/t ED. increase buproprion ER to 300 mg daily. 2. anxeity -EFE decreased from 19 on 07/06/24 to 11 on 08/22/24. plan: - continue hydroxyzine as needed. - d/c propranolol 3. medication management - Continue taking Sertraline 100 mg, with a plan to decrease to 50 mg starting Tuesday, August 27, 2024, for one week, then discontinue. - Increase Bupropion to 300 mg. - Discontinue Propranolol as it is no longer needed. - Continue using Hydroxyzine as needed for sleep, up to twice a week. - Follow up in one month to assess progress and possibly adjust to a 3-month supply of medications. - Consider another urine test for THC levels, strictly as a send-out to ensure accuracy. 5. THC use - Patient reports recent positive THC test for a job at [employer]. - patient denied marijuana use and is requesting a repeat urine drug screen. - Plan: a. Review urine test results. b. Consider sending out for further testing c. Encourage abstinence from THC use. d. Discuss potential impact on mental health and employment opportunities. 6. Follow-up - Schedule follow-up appointment in one month to assess progress and adjust treatment plan if necessary. - If patient is stable at next appointment, consider providing 3-month medication supply. - Patient plans to attend [facility] in the future. 08/22/2024 Anxiety (ICD-10 - F41.9) 1. Depression - PHQ decreased from 22 on 07/06/24 to 11 on 08/22/24. - patient denied suicidal thoughts or thoughts of self-harm - patient reported an improvement in mood since initiation of treatment. plan: continue to maddison off sertraline r/t ED. increase buproprion ER to 300 mg daily. 2. anxeity -EEF decreased from 19 on 07/06/24 to 11 on 08/22/24. plan: - continue hydroxyzine as needed. - d/c propranolol 3. medication management - Continue taking Sertraline 100 mg, with a plan to decrease to 50 mg starting Tuesday, August 27, 2024, for one week, then discontinue. - Increase Bupropion to 300 mg. - Discontinue Propranolol as it is no longer needed. - Continue using Hydroxyzine as needed for sleep, up to twice a week. - Follow up in one month to assess progress and possibly adjust to a 3-month supply of medications. - Consider another urine test for THC levels, strictly as a send-out to ensure accuracy. 5. THC use - Patient reports recent positive THC test for a job at [employer]. - patient denied marijuana use and is requesting a repeat urine drug screen. - Plan: a. Review urine test results. b. Consider sending out for further testing c. Encourage abstinence from THC use. d. Discuss potential impact on mental health and employment opportunities. 6. Follow-up - Schedule follow-up appointment in one month to assess progress and adjust treatment plan if necessary. - If patient is stable at next appointment, consider providing 3-month medication supply. - Patient plans to attend [facility] in the future. 09/20/2024 MDD (recurrent major depressive disorder) in remission (ICD-10 - F33.40) Assessment and plan reviewed with patient Call for problems with medication, side effects or need for dosage change Compliance issues reviewed Discussed the risks/benefits of this medication Discussed medication side effects Return if symptoms worsen Treatment options reviewed. discussed that it can take weeks to see full therapeutic effects of psychotropic medications. discussed when to seek emergency services. discussed crisis prevention hotline [phone]. 1. Depression - Patient reports improvement in depressive symptoms. - Currently on bupropion 300 mg daily. - Goldberg Depression Inventory score: 9 points. - Plan: a. Continue bupropion 300 mg daily. b. Monitor depressive symptoms and adjust medication as needed. c. Encourage engagement in therapy for additional support. 2. Anxiety - Using hydroxyzine as needed for anxiety management. - No refill needed (3-month supply provided by [facility]). - Plan: a. Continue hydroxyzine as needed for anxiety. b. Encourage engagement in therapy for additional support and anxiety management strategies. 3. Substance Use - Patient reports quitting marijuana. - Negative home test result (acknowledges potential residual THC). - Plan: a. Encourage continued abstinence from marijuana use. b. Provide support and resources for maintaining sobriety. 4. Insomnia - No significant sleep disturbances reported. - Plan: Continue monitoring sleep patterns and address issues as needed. 5. Suicidal Ideation - Patient denies thoughts of suicide. - Plan: a. Continue monitoring for suicidal ideation or self-harm behaviors. b. Encourage seeking immediate help if experiencing suicidal thoughts. 09/20/2024 Anxiety (ICD-10 - F41.9) 1. Depression - Patient reports improvement in depressive symptoms. - Currently on bupropion 300 mg daily. - Goldberg Depression Inventory score: 9 points. - Plan: a. Continue bupropion 300 mg daily. b. Monitor depressive symptoms and adjust medication as needed. c. Encourage engagement in therapy for additional support. 2. Anxiety - Using hydroxyzine as needed for anxiety management. - No refill needed (3-month supply provided by [facility]). - Plan: a. Continue hydroxyzine as needed for anxiety. b. Encourage engagement in therapy for additional support and anxiety management strategies. 3. Substance Use - Patient reports quitting marijuana. - Negative home test result (acknowledges potential residual THC). - Plan: a. Encourage continued abstinence from marijuana use. b. Provide support and resources for maintaining sobriety. 4. Insomnia - No significant sleep disturbances reported. - Plan: Continue monitoring sleep patterns and address issues as needed. 5. Suicidal Ideation - Patient denies thoughts of suicide. - Plan: a. Continue monitoring for suicidal ideation or self-harm behaviors. b. Encourage seeking immediate help if experiencing suicidal thoughts. 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 You may need urgent medical care. You may also contact the poison control center at . A specific treatment to reverse the effects of lithium does not exist, but there are treatments to decrease the effects of the medication. Only a doctor can determine if you require treatment. Avoid drinking alcohol or using illegal drugs while you are taking lithium. They may decrease the benefits (e.g., worsen your condition) and increase adverse effects (e.g., sedation) of the medication. Avoid low sodium diets and dehydration because this can increase the risk of lithium toxicity. Avoid over the counter and prescription pain medications that contain nonsteroidal anti-inflammator y medications (NSAIDS) such as ibuprofen (Motrin, Advil) or naproxen (Aleve, Naprosyn) because these medications can increase the risk of toxicity from lithium. Avoid excessive intake of caffeinated beverages, such as coffee, tea, cola or energy drinks, since these may decrease levels of lithium and decrease effectiveness of the medication. Discontinuing caffeine use may increase lithium levels. Consult your health care provider before reducing or stopping caffeine use. What are the possible side effects of lithium? Common side effects Headache Nausea or vomiting Diarrhea Dizziness or drowsiness Changes in appetite Hand tremors Dry mouth Increased thirst Increased urination Thinning of hair or hair loss Acne-like rash Rare/Serious side effects Signs of lithium toxicity include severe nausea and vomiting, severe hand tremors, confusion, vision changes, and unsteadiness while standing or walking. These symptoms need to be addressed immediately with a medical doctor to ensure your lithium level is not dangerously high. In rare cases, lithium may lead to a reversible condition known as diabetes insipidus. If this occurs you would notice a significant increase in thirst and how much fluid you drink and how much you urinate. Talk to your doctor if you notice you are urinating more frequently than usual. Are There Any Risks For Taking [place] For Long Periods Of Time? Hypothyroidism (low levels of thyroid hormone) may occur with long-term lithium use. Rare kidney problems have been associated with long-term use of lithium. The risk increases with high levels of lithium. Your doctor will monitor your kidney function at routine check-ups to ensure this does not occur. Summary of Black Box Warnings [place] Toxicity [place] toxicity is closely related to lithium blood levels and can occur at doses close to therapeutic levels; lithium levels should be monitored closely when starting the medication or if individuals experience side effects of the medication. 12/04/2024 Anxiety (ICD-10 - F41.9) Patient had reduction in suicidal ideation and/or behavior upon follow-up assessment within 120 days of index assessment (M1357). Patient had reduction in suicidal ideation and/or behavior upon follow-up assessment within 120 days of index assessment (M1357) 12/22/2024 MDD (major depressive disorder), recurrent episode, mild (ICD-10 - F33.0) 01/01/2025 Encounter for screening for depression (ICD-10 - Z13.31) Patient had reduction in suicidal ideation and/or behavior upon follow-up assessment within 120 days of index assessment (M1357). Patient had reduction in suicidal ideation and/or behavior upon follow-up assessment within 120 days of index assessment (M1357) 01/01/2025 Anxiety (ICD-10 - F41.9) Patient had reduction in suicidal ideation and/or behavior upon follow-up assessment within 120 days of index assessment (M1357). Patient had reduction in suicidal ideation and/or behavior upon follow-up assessment within 120 days of index assessment (M1357) 11/08/2024 Anxiety (ICD-10 - F41.9) 12/04/2024 MDD (major depressive disorder), recurrent episode, mild (ICD-10 - F33.0) Patient had reduction in suicidal ideation and/or behavior upon follow-up assessment within 120 days of index assessment (M1357). Patient had reduction in suicidal ideation and/or behavior upon follow-up assessment within 120 days of index assessment (M1357) 07/06/2024 Marijuana use (ICD-10 - F12.90) 1. Generalized Anxiety Disorder (EFE) - Current anxiety level: 07/19 - Panic attacks: four in the past week - Plan: a. Continue sertraline 200 mg daily b. Start propranolol 10 mg as needed, up to three times a day for anxiety management - Instruct to check pulse before taking propranolol; if below 60 bpm, do not take c. Encourage use of hydroxyzine HCL during initiation of anxiety to prevent panic attacks 2. Major Depressive Disorder (MDD) - Current depression level: 07/19 - Symptoms: hypersomnia, loss of appetite, difficulty concentrating, irritability, passive suicidal thoughts, self-harm (cutting leg two weeks ago) - Plan: a. Restart bupropion at 75 mg short-acting daily b. Gradually increase bupropion dose as tolerated c. Monitor for irritability and depressive symptoms d. If irritability recurs, consider switching to Rexulti 3. Family History of Mental Health Issues - Mother, sister, and grandmother with EFE and depression - Plan: Instruct patient to gather information on family members' medications to guide treatment 4. Substance Use - Marijuana use: almost every night from dispensary and vape shop - Alcohol use: occasional - No new substance use reported - Plan: Monitor substance use and discuss potential impact on mental health 5. Medication Management - Currently on Wegovy for over a year - Recently discontinued bupropion due to irritability and increased depressive symptoms - Plan: Reassess medication effectiveness and side effects at follow-ups Follow-up: - Schedule follow-up in two weeks to assess response to medication adjustments and monitor symptoms - Encourage use of Leeo yoselin for direct provider communication 01/01/2025 MDD (major depressive disorder), recurrent episode, mild (ICD-10 - F33.0) Patient had reduction in suicidal ideation and/or behavior upon follow-up assessment within 120 days of index assessment (M1357). Patient had reduction in suicidal ideation and/or behavior upon follow-up assessment within 120 days of index assessment (M1357) 07/06/2024 Other Learning About Depression Screening material was printed Assessment and plan reviewed with patient Call for problems with medication, side effects or need for dosage change Compliance issues reviewed Discussed the risks/benefits of this medication Discussed medication side effects Return if symptoms worsen Treatment options reviewed. discussed that it can take weeks to see full therapeutic effects of psychotropic medications. discussed when to seek emergency services. discussed crisis prevention hotline 988. 1. Generalized Anxiety Disorder (EFE) - Current anxiety level: 07/19 - Panic attacks: four in the past week - Plan: a. Continue sertraline 200 mg daily b. Start propranolol 10 mg as needed, up to three times a day for anxiety management - Instruct to check pulse before taking propranolol; if below 60 bpm, do not take c. Encourage use of hydroxyzine HCL during initiation of anxiety to prevent panic attacks 2. Major Depressive Disorder (MDD) - Current depression level: 07/19 - Symptoms: hypersomnia, loss of appetite, difficulty concentrating, irritability, passive suicidal thoughts, self-harm (cutting leg two weeks ago) - Plan: a. Restart bupropion at 75 mg short-acting daily b. Gradually increase bupropion dose as tolerated c. Monitor for irritability and depressive symptoms d. If irritability recurs, consider switching to Rexulti 3. Family History of Mental Health Issues - Mother, sister, and grandmother with EFE and depression - Plan: Instruct patient to gather information on family members' medications to guide treatment 4. Substance Use - Marijuana use: almost every night from dispensary and vape shop - Alcohol use: occasional - No new substance use reported - Plan: Monitor substance use and discuss potential impact on mental health 5. Medication Management - Currently on Wegovy for over a year - Recently discontinued bupropion due to irritability and increased depressive symptoms - Plan: Reassess medication effectiveness and side effects at follow-ups Follow-up: - Schedule follow-up in two weeks to assess response to medication adjustments and monitor symptoms - Encourage use of Leeo yoselin for direct provider communication 07/23/2024 Other Assessment and plan reviewed with patient Call for problems with medication, side effects or need for dosage change Compliance issues reviewed Discussed the risks/benefits of this medication Discussed medication side effects Return if symptoms worsen Treatment options reviewed. discussed that it can take weeks to see full therapeutic effects of psychotropic medications. discussed when to seek emergency services. discussed crisis prevention hotline 988. 1. Major Depressive Disorder - PHQ-9 score improved from 22 to 16. - Positive response to bupropion 75mg and sertraline 200mg adjustment. - Patient reports symptom improvement since reducing stress. - Plan: a. Continue current medications. b. Reassess in 4 weeks. c. Encourage healthy coping strategies and family time. d. Instruct contacting provider or texting [phone] if suicidal thoughts occur. 2. Generalized Anxiety Disorder - EFE score improved from 19 to 17. - Positive response to medication with only 1 panic attack. - - Plan: a. Continue current medications. b. Reassess in 4 weeks. c. Encourage healthy coping like reduced screen/social media time. d. Instruct contacting provider if anxiety worsens or panic attacks increase. 3. Insomnia - Patient reports difficulty with sleep onset and duration. - Melatonin ineffective. - Plan: a. Try hydroxyzine for sleep and combine with melatonin. b. Message provider on yoselin if sleep aid needed. c. Reassess sleep in 4 weeks. 4. Substance Use - Patient ceased marijuana use. - Occasional alcohol use (twice in 2 weeks). - Plan: a. Encourage continued marijuana abstinence. b. Monitor alcohol consumption. c. Discuss importance of sobriety with new job's zero-tolerance policy. 5. Sexual Dysfunction - Patient reports low sex drive and difficulty performing. - Likely due to sertraline and possibly propranolol. - Plan: a. Avoid propranolol if planning for sexual activity. b. Consider Vistaril instead for anxiety. c. Monitor sexual function and discuss potential med adjustments if persists. 6. Follow-Up - Schedule follow-up in 4 weeks to reassess symptoms, medication effectiveness and overall progress. - Patient can come in sooner if needed without appointment.. Patient had reduction in suicidal ideation and/or behavior upon follow-up assessment within 120 days of index assessment (M1357) 08/02/2024 Other patient denied marijuana use but THC + urine sent out for further testing. 1. Major Depressive Disorder - He reports more good days, but bad days still as severe. - Depression rated at 6 out of 10. - Plan: a. Decrease sertraline to 150mg daily for 2 weeks, then to 100mg daily. b. Reassess at next appointment on August 21. 2. Anxiety - Anxiety rated at 4-5 out of 10. - Propranolol not effective for high anxiety moments, only preventing panic attacks. - Plan: a. Discontinue propranolol. b. Continue hydroxyzine for anxiety and sleep. 3. Insomnia - He reports improvement in sleep. - Plan: Continue hydroxyzine as needed for sleep. 4. Sexual Side Effects - He suspects sertraline as the cause. - Plan: a. Monitor effects of reduced sertraline dosage on sexual side effects. b. Consider further reduction or discontinuation if side effects persist. 5. Panic Attacks - He reports experiencing panic attacks. - Plan: Monitor effects of discontinuing propranolol on panic attacks. 6. Difficulty Concentrating - He reports difficulty concentrating. - Plan: Monitor effects of medication adjustments on concentration. 7. Irritability - He reports irritability. - Plan: Monitor effects of medication adjustments on irritability. 8. Medication Refills - Plan: Refill hydroxyzine and sertraline prescriptions. Send to [facility]. 9. Crisis Management - Plan: Remind him of crisis hotline (611) for suicidal thoughts or emergencies. 10. Follow-Up - Appointment scheduled for August 21 to reassess progress and medication adjustments. 08/22/2024 Other Assessment and plan reviewed with patient Call for problems with medication, side effects or need for dosage change Compliance issues reviewed Discussed the risks/benefits of this medication Discussed medication side effects Return if symptoms worsen Treatment options reviewed. discussed that it can take weeks to see full therapeutic effects of psychotropic medications. discussed when to seek emergency services. discussed crisis prevention hotline 988. 1. Depression - PHQ decreased from 22 on 07/06/24 to 11 on 08/22/24. - patient denied suicidal thoughts or thoughts of self-harm - patient reported an improvement in mood since initiation of treatment. plan: continue to maddison off sertraline r/t ED. increase buproprion ER to 300 mg daily. 2. anxeity -EFE decreased from 19 on 07/06/24 to 11 on 08/22/24. plan: - continue hydroxyzine as needed. - d/c propranolol 3. medication management - Continue taking Sertraline 100 mg, with a plan to decrease to 50 mg starting Tuesday, August 27, 2024, for one week, then discontinue. - Increase Bupropion to 300 mg. - Discontinue Propranolol as it is no longer needed. - Continue using Hydroxyzine as needed for sleep, up to twice a week. - Follow up in one month to assess progress and possibly adjust to a 3-month supply of medications. - Consider another urine test for THC levels, strictly as a send-out to ensure accuracy. 5. THC use - Patient reports recent positive THC test for a job at [employer]. - patient denied marijuana use and is requesting a repeat urine drug screen. - Plan: a. Review urine test results. b. Consider sending out for further testing c. Encourage abstinence from THC use. d. Discuss potential impact on mental health and employment opportunities. 6. Follow-up - Schedule follow-up appointment in one month to assess progress and adjust treatment plan if necessary. - If patient is stable at next appointment, consider providing 3-month medication supply. - Patient plans to attend [facility] in the future. 11/08/2024 Other Lamotrigine may cause rashes, including serious rashes that may need to be treated in a hospital or cause permanent disability or . Tell your doctor if you are taking valproic acid (Depakene) or divalproex (Depakote) because taking these medications with lamotrigine may increase your risk of developing a serious rash. Also tell your doctor if you have ever developed a rash after taking lamotrigine or any other medication for epilepsy or if you are allergic to any medications for epilepsy. Your doctor will start you on low dose of lamotrigine and gradually increase your dose, not more than once every 1 to 2 weeks. You may be more likely to develop a serious rash if you take a higher starting dose or increase your dose faster than your doctor tells you that you should. Your first doses of medication may be packaged in a starter kit that will clearly show you the right amount of medication to take each day during the first 5 weeks of your treatment. This will help you to follow your doctor's instructions as your dose is slowly increased. Be sure to take lamotrigine exactly as directed. Do not take more or less of it or take it more often than prescribed by your doctor. Serious rashes usually develop during the first 2 to 8 weeks of treatment with lamotrigine, but can develop at any time during treatment. If you develop any of the following symptoms while you are taking lamotrigine, call your doctor immediately: rash; blistering or peeling of the skin; hives; itching; or painful sores in your mouth or around your eyes. Talk to your doctor about the risks of taking lamotrigine or of giving lamotrigine to your child. Children 2-17 years of age who take lamotrigine are more likely to develop serious rashes than adults who take the medication. Your doctor or pharmacist will give you the visual presentation manager's patient information sheet (Medication Guide) when you begin treatment with lamotrigine and each time you refill your prescription. Read the information carefully and ask your doctor or pharmacist if you have any questions. You can also visit the Food and Drug Administration (FDA) website (https://www.fda .gov/Drugs/DrugS afety/wyn064397. htm) or the visual presentation manager's website to obtain the Medication Guide. 1. Major Depressive Disorder - Patient reports recurring suicidal thoughts without plan or intent. - Depression rated as 8/10. - No history of manic episodes. - Plan: a. Start [place] and Lamotrigine simultaneously. b. Small dose of [place] for one week to address suicidal thoughts. c. Initiate Lamotrigine 25 mg daily for 2 weeks, then increase to 50 mg daily. d. Monitor for side effects, particularly Varghese-Arpit syndrome. e. Advise patient to avoid alcohol while on [place]. f. Schedule follow-up in one week. 2. Anxiety - Patient rates anxiety as 5/10. - Reports difficulty concentrating and irritability. - Plan: a. Monitor response to Lamotrigine for potential improvement. b. Continue weekly therapy c. Reassess symptoms at follow-up. 3. Binge Eating - Patient reports increased appetite and binge eating. - Plan: a. Monitor response to mood stabilizers for potential improvement. b. Encourage balanced diet and consider nutritional counseling. c. Reassess eating habits at follow-up. 4. Substance Use - Patient reports cessation of marijuana use. - Plan: a. Encourage continued abstinence from marijuana and other substances. b. Monitor for potential relapse during follow-ups. 5. Crisis Prevention - Patient is aware of crisis prevention hotline number. - Plan: a. Encourage utilization of crisis prevention resources if needed. b. Monitor safety and mental health during follow-ups. 11/14/2024 Other 1. Suicidal Thoughts - Patient reports suicidal thoughts have resolved. - Continue monitoring for any recurrence. 2. Medication Side Effects - Patient reports increased urination. - Monitor for additional or worsening side effects. - last dose of lithium is 11/15/24, polyuria expected to stop after discontinuation . 3. Lamotrigine Titration - Currently on week one at 25 mg. - Continue plan: week two at 25 mg, week three at 50 mg. - Assess effectiveness at 100 mg before considering increase to 200 mg. - Monitor for Varghese-Arpit syndrome signs, including rashes. - Instruct patient to check back regularly. - If more than 3 days missed, return to 25 mg. 4. [place] Discontinuation - One more day of lithium remaining. - Instruct to finish lithium and continue lamotrigine. - Consider reintroducing lithium if lamotrigine ineffective. 5. Bupropion and Hydroxyzine - Confirm adequate supply of bupropion. - Encourage continued use of hydroxyzine as prescribed. 6. Anxiety - EFE-7: 14 - Patient rates anxiety at 03/19. - Continue monitoring, consider treatment adjustment if worsens or doesn't improve. 7. Depression - BDI: 8 - PHQ-9: 14 - Patient rates depression at 12/17. - Monitor for changes in depressive symptoms. - Note patient experiences mood fluctuations. 8. Psychotic Symptoms - Patient denies hallucinations, delusions, or paranoia. - Continue monitoring for emergence of psychotic symptoms. 9. Appetite and Stressors - Patient reports appetite issues and recent stressors. - Encourage addressing stressors and monitor appetite changes. 10. Follow-Up - Schedule appointment in three weeks to assess lamotrigine effectiveness and mental health status. - Consider extending to every few months if stable at correct dose. Patient had reduction in suicidal ideation and/or behavior upon follow-up assessment within 120 days of index assessment (M1357) 12/04/2024 Other Assessment and plan reviewed with patient Call for problems with medication, side effects or need for dosage change Compliance issues reviewed Discussed the risks/benefits of this medication Discussed medication side effects Return if symptoms worsen Treatment options reviewed. discussed that it can take weeks to see full therapeutic effects of psychotropic medications. discussed when to seek emergency services. discussed crisis prevention hotline 988. 1. Major Depressive Disorder - Patient reports feeling tired, difficulty concentrating, and irritability. - EFE score is 4. - Patient rates depression as 4/10. - Currently on lamotrigine 50 mg and bupropion 300 mg. - Plan: a) Increase lamotrigine to 100 mg daily. b) Continue bupropion 300 mg daily. c) Monitor for improvement in depressive symptoms and irritability. d) Follow up in 1 month. 2. Generalized Anxiety Disorder EFE-7: 10 - Patient rates anxiety as 5/10. - Reports hydroxyzine helps with anxiety. - Currently on hydroxyzine as needed. - Plan: a) Continue hydroxyzine as needed for anxiety. b) Monitor for improvement in anxiety symptoms. c) Follow up in 1 month. 3. Insomnia - Patient reports difficulty falling asleep, getting 4-5 hours of sleep per night. - Currently using melatonin with mixed results. - Plan: a) Encourage good sleep hygiene practices. b) Continue melatonin as needed. c) Reevaluate sleep issues at next follow-up. 4. Paranoia and Vitamin Intake - Patient experienced paranoia, possibly linked to vitamin intake or lamotrigine. - Patient has stopped taking vitamins as of today. - Plan: a) Monitor for changes in paranoia symptoms with cessation of vitamins. b) Reevaluate at next follow-up. 5. Medication Management - Patient is adherent to current medications. - Patient is aware of Romero-Arpit syndrome risk with lamotrigine and seizure risk with bupropion. - Plan: a) Refill lamotrigine prescription. b) Continue current medications as prescribed. c) Follow up in 1 month to assess medication effectiveness and tolerability. Patient had reduction in suicidal ideation and/or behavior upon follow-up assessment within 120 days of index assessment (M1357). Patient had reduction in suicidal ideation and/or behavior upon follow-up assessment within 120 days of index assessment (M1357) 01/01/2025 Ed Frye is a patient with a history of depression and anxiety, currently on multiple psychiatric medications, reporting improvement in symptoms. Major Depressive Disorder Assessment: Patient reports feeling better with current medication regimen. PHQ-9 score is 8, indicating mild depression. Patient rates current depression as 4/10. No reported suicidal ideation or self-harm thoughts. Plan: - Continue bupropion 300 mg daily - Continue lamotrigine 100 mg twice daily - Encourage continued abstinence from alcohol - Follow up in one month Anxiety Disorder Assessment: Patient has a history of anxiety, currently managed with hydroxyzine as needed. However, patient reports not having taken hydroxyzine in a long time. EFE-7 score is 5, indicating mild anxiety. Plan: - Continue hydroxyzine as needed for anxiety - Monitor anxiety symptoms at follow-up appointment The note is transcribed using speech recognition software. It is a reflection of a visit with the patient. It might have some inaccuracy, including medication names and transcribing errors, though efforts have been made to correct them. Patient had reduction in suicidal ideation and/or behavior upon follow-up assessment within 120 days of index assessment (M1357). Patient had reduction in suicidal ideation and/or behavior upon follow-up assessment within 120 days of index assessment (M1357) Plan Of Treatment Next Appt Details Provider Name:Jaky Garcia, 01/31/2025 04:45:00 PM, [address] [facility], [facility] [address], [place], [address], Insurance Providers Payer Name Payer Address Payer Phone Subscriber Number Group Number Insured Name Patient Relationship to Insured Coverage Start Date Coverage End Date [employer] [address] [place] [address] [id number] MARGARET Wong YANETH Self - patient is the insured Medical (General) History Medical History History ICD Code Past Psychiatric History: An xiety Disorder,Panic Disorder,PTSD,Major Depressive Episode abdominal aortic aneurysm: No atrial fibrillation: No chronic fatigue syndrome: No essential tremor: No hyperlipidemia: No hypertension: No Parkinson's disease: No restless leg syndrome: No stroke: No subdural hematoma: No type 1 diabetes mellitus: No type 2 diabetes mellitus: No vitamin B12 deficiency: No vitamin D deficiency: No Past Psychiatric History: An xiety Disorder,Panic Disorder,Major Depressive Episode Past Psychiatric History: Anxiety Disord er,Panic Disorder undefined Surgical History Surgery Date(Month/Year) wisdom teeth extraction tonsillectomy
--- OUTSIDE RECORDS SUMMARY | 2025-01-18 00:51 | XMS_ITS | Clinical Summary ---
Author Organization [facility] Address [address] [facility] [place] [address] Care Team Providers Care Land Department Head Name Role Phone Sheila Corona MD Primary Care Provider [phone] Source Comments [facility],non-owned Affiliates and Associated Physician Practices is amultiple site organization consisting of ambulatory clinics and hospital sitesin [place], [place], [place] and [place]. This disclosure is being madepursuant to the Care Everywhere program and may not contain all information available regarding this patient. Last updated 18.[employer] [facility] [email or web address] Allergies No known active allergies Medications * Be aware that medications may not be up to date on this document. Alwaysverify current medications with the patient. Medication Sig Dispensed Refills Start Date End Date Status sertraline (ZOLOFT) 100 MG tablet Take 100 mg by mouth once daily Active Family History Medical History Relation Name Comments Other Mother pacemaker Relation Name Status Comments Mother Alive Social History Tobacco Use Types Packs/Day Years Used Date Smoking Tobacco: Never Smokeless Tobacco: Never Comments:non smoking home PHQ-2 Answer Date Recorded PHQ2 TOTAL SCORE 0 02/12/2021 Sex and Gender Information Value Date Recorded Sex Assigned at Not on file Gender Identity Not on file Sexual Orientation Not on file Last Filed Vital Signs Vital Sign Reading Time Taken Comments Blood Pressure 118/70 02/12/2021 12:35 PM CDT Pulse 58 02/12/2021 12:35 PM CDT Temperature 36.7 C (98.1 F) 02/12/2021 12:35 PM CDT Respiratory Rate 16 02/12/2021 12:35 PM CDT Oxygen Saturation 98% 02/12/2021 12:35 PM CDT Inhaled Oxygen Concentration - - Weight 149.7 kg (330 lb) 02/12/2021 12:35 PM CDT Height 195.6 cm (6' 5 ) 02/12/2021 12:35 PM CDT Body Mass Index 39.13 02/12/2021 12:35 PM CDT Plan of Treatment Health Maintenance Due Date Last Done Comments HIV SCREENING 2017 HPV VACCINE (1 - Male 3-dose series) 2017 MENINGOCOCCAL (Group B) VACC INE SHARED DECISION-MAKING (1 of 2 - Standard) 2018 HEPATITIS C SCREENING 07/07/2020 DTAP/TDAP/TD VACCINES (1 - Tdap) 2021 HEPATITIS B VACCINE (1 of 3 - 19+ 3-dose series) 2021 COVID-19 VACCINE (1 - 2023-2 5 season) 2024 DEPRESSION SCREENING 10/10/2024 INFLUENZA VACCINE (Season Ended) 2025 ZOSTER VACCINE (1 of 2) 2052 HIB VACCINE Aged Out No longer eligi ble based on patient's age to complete this topic MENINGOCOCCAL GROUPS A/C/Y/W VACCINE Aged Out No longer eligible b ased on patient's age to complete this topic PNEUMOCOCCAL VACCINE Aged Out No long er eligible based on patient's age to complete this topic Care Teams Land Department Head Relationship Specialty Start Date End Date Sheila Corona MD [address] [place], [place] [id number] PCP - General Pediatrics 01/17/18
--- NOTE | 2025-01-18 10:06 | WPDHPUPDATE1 ---
History and Physical Update Update Date/Time: 01/18/25 10:06 History and Physical has been reviewed, including an updated exam of the patient. There are NO changes in the patient's condition. Risks, benefits, and alternatives have been discussed and questions answered. Patient agrees to proceed with procedure.
--- NOTE | 2025-01-18 10:33 | WPDANESEPPF ---
Anes - Initial Pre Proc Eval Procedure: Operation Date: 01/18/25 12:00 Proposed Procedures p Excision Lipomas of Scalp, Back, Abdomen and Left Forearm - Jama Shea MD Date/Time: 01/18/25 10:33 Surgeon: Jama Shea MD Pre Op Diagnosis: multiple lipomas Patient Data Age: 24 Gender: M Height: 1.96 m Weight: 145.5 kg Allergies Allergy/AdvReac Type Severity Reaction Status Date / Time No Known Allergies Allergy Verified 01/18/25 10:24 Home Medications ?Medication ?Instructions ?Recorded ?Confirmed ?Type bupropion HCl 300 mg 24 hr tablet, 300 mg PO DAILY 10/23/24 01/10/25 History extended release semaglutide (weight loss) 0.5 0.5 mg (0.5 mL) subcut WEEKLY #2 mL 01/02/25 01/10/25 Rx mg/0.5 mL subcutaneous pen injector (Wegovy) lamotrigine 100 mg tablet 200 mg PO DAILY 01/10/25 01/10/25 History Patient hx anesthesia problems: none Family hx anesthesia problems: none Results Review: All pre-operative results and documents have been reviewed as part of the pre-operative evaluation. [facility] Past Medical History Medical History Morbid obesity with body mass index of 40.0-44.9 in adult COVID Irritable bowel syndrome (IBS) Anxiety Lipoma Encounter to establish care Surgical History Surgical History H/O wisdom tooth extraction 2020 Hx of tonsillectomy 2007 Family History Family History Mother Depression Heart disease Father Depression Heart disease Sibling Depression Grandparent Heart disease Social History Social History Social History: Caffeine-coffee/soda, energy drinks and pre-workout Smoking status: Never smoker Alcohol intake: never Do You Feel Safe in your Home?: Yes Lack of Transportation: No Lack of Food: Never True Current Housing: I Have Housing Concerned About Future Housing: No Difficulty Paying Gas/Electric Bills: No Difficulty Paying for Meds: No Currently Unemployed: No Education: High School Diploma/GED Difficulty w/ Childcare or Family Care: No Anes - Eval Final PreProcedure Day of Procedure 01/18/25 10:33 Patient weight: obese Heart: regular rate and rhythm Lungs: clear to auscultation Airway: Mallampati scale class II Neurological: alert and oriented Last oral intake: >/= 8 hours ASA classification: II Emergent: no Anesthetic plan: proceed Anesthesia type and monitoring: general ETT and standard monitoring Results Review: All pre-operative results and documents have been reviewed as part of the pre-operative evaluation. Informed Consent: The patient's anesthetic plan and its attendant risks and benefits were discussed with the patient/family/POA. Questions were solicited and answers provided to the satisfaction of the patient/family/POA.
[2025-01-18] MEDS: LACTATED RINGERS 1,000 ML 30 ML IV CONT (11:00)
[2025-01-18] MEDS: ceFAZolin 3 GM/D5W 100 ML 100 ML IVPB (11:47)
[2025-01-18] MEDS: BUPIVACAINE/EPINEPHRINE 0.5% 50 ML VIAL 60 ML INFILTRATE (11:47)
[2025-01-18] MEDS: NEOMYCIN/POLYMYXIN/BACITRACIN OINTMENT 15 GM TUBE 1 APPLIC TOPICAL (13:23)
--- NOTE | 2025-01-18 16:02 | W.PM.PROC2 ---
Procedure Note - Detailed Date of Procedure 01/18/25 Pre-op Diagnosis multiple lipomas, various sites Post-op Diagnosis Same Procedure Performed Excision 6 total subcutaneous masses from multiple sites-left forearm 2.8 cm; left lower quadrant 3 cm; left mid abdomen 3.5 cm; epigastrium 4 cm; occipital scalp 1.7 cm; lumbar back 2.5 cm; Surgeon Jama Shea MD Beveller Operator Sendy KAPLANA, lupe Simmons PARKS RECREATION COORDINATOR Anesthesia General and Local Indications Patient has multiple subcutaneous nodules that are consistent with lipomas. These have either been enlarging or are painful or both. He is taken to surgery now for excision of multiple subcutaneous nodules, most likely lipomas Findings Each of these subcutaneous masses appeared to be lipomas. There was no evidence of a malignant lesion. Description of Procedure Patient was taken to surgery and placed in a supine position. Anesthesia was introduced. The left volar forearm as well as the entire abdomen were prepped and draped. All lesions had been marked in the preoperative area. We started with the left forearm. Local was infiltrated in the area of the anticipated incision. Skin incision was made and deepened down through the superficial subcutaneous. Using blunt dissection a fatty subcutaneous nodule was noted. Blunt and sharp dissection continued using cautery for hemostasis. Eventually this entire nodule was able to be removed. The nodule measured 2.8 cm in greatest dimension. The wound was made hemostatic with the cautery. It was closed with a deep layer 3-0 Vicryl and a subcuticular interrupted 4-0 Vicryl skin stitch. We then turned our attention to the 3 nodules on the abdomen. Two were in the left lower quadrant. The lower most of the 2 was labeled left lower quadrant, the other was labeled left mid abdomen. We infiltrated local over the anticipated incision for each of the 3 nodules. Starting 1st with the left lower quadrant nodule. Incision was made. Cautery was used for hemostasis. The nodule was dissected using blunt and sharp dissection as well as additional cautery. Once removed, it was measured and measured 3 cm in greatest dimension. The wound was made hemostatic with the cautery. It was closed with 3-0 and 4-0 subcutaneous Vicryl suture. The skin was closed with running 4-0 Monocryl skin suture. The left mid abdomen nodule was also infiltrated with local and incision made. This was dissected free from the surrounding subcutaneous and similar fashion. This nodule measured 3.5 cm in greatest dimension. The wound was made hemostatic with the cautery. It was closed again using subcuticular and subcutaneous Vicryl suture with a running 4-0 Monocryl skin suture. The epigastric nodule was anesthetized and excised in like fashion. Once removed, it was measured and was 4 cm in greatest dimension. This wound was also made hemostatic and then closed with subcuticular interrupted 4-0 Vicryl skin suture followed by running 4-0 Monocryl skin suture. At this point, the patient remained under anesthesia and was turned in to the left lateral decubitus position. The subcutaneous nodule in the right lower back as well as the right occipital scalp had been marked on the skin in the preoperative area and as had been all the previously excised nodules. Prep and drape of both the scalp and the lower back nodules was carried out. We started with the scalp nodule. Additional local was infiltrated and an incision was made in a transverse orientation. Dissection was carried down through the skin and superficial subcutaneous. A nodule was deep and was a little difficult to palpate. Eventually a smooth lipomatous nodule was found. This was mobile and rubbery as well. The nodule was dissected free from the surrounding structures using blunt and sharp dissection. Cautery was used for hemostasis. Some subcutaneous scalp vessels required thorough cautery cauterization to control bleeding. Bleeding was, however, minimal. Once the scalp nodule had been excised, it was measured and was 1.7 cm in greatest dimension. The wound was then closed with subcutaneous 3-0 Vicryl as well as subcuticular interrupted 4-0 Vicryl skin stitches. Finally we looked at the lumbar area on the right which had also been previously marked. I was able to palpate the subcutaneous nodule. Local was again infiltrated and a transversely oriented fashion. Incision was made and dissection was carried down to the subcutaneous nodule. The nodule was excised using a combination of blunt and sharp dissection. This nodule measured 2.5 cm in greatest dimension. The wound was made hemostatic with the cautery. It was closed with subcutaneous 3-0 Vicryl interrupted suture followed by 4-0 Vicryl subcuticular interrupted suture. Finally running 4-0 Monocryl skin suture was placed. The scalp wound was dressed with antibiotic ointment. All the other incisions were dressed with Exofin surgical adhesive. The patient was returned to a supine position. He was awakened and extubated. He transferred to recovery in good condition. Estimated Blood Loss -25 Drains No Pathology Yes (Multiple subcutaneous nodules each sent separately and labeled appropriately-6 total nodules) Complications None Condition Stable Disposition PACU [facility] Billing Surgery - Charge Forward: Surgery Billing (Excision 6 total subcutaneous masses from multiple sites-left forearm 2.8 cm; left lower quadrant 3 cm; left mid abdomen 3.5 cm; epigastrium 4 cm; occipital scalp 1.7 cm; lumbar back 2.5 cm;)
== END 2025-01-18 15:41 | disposition home or self-care (01) ==
PROVIDERS: PCP Clinical Nurse Specialist; Visit Provider Surgery
PROC: (CPT 25075; principal; 2025-01-18 12:00)
DX: D17.22 Benign lipomatous neoplasm of skin and subcutaneous tissue of left arm (principal); D17.1 Benign lipomatous neoplasm of skin and subcutaneous tissue of trunk; D17.0 Benign lipomatous neoplasm of skin and subcutaneous tissue of head, face and neck
CPT/HCPCS: 25075; 22902 ×2; 22903 ×2; 21011; 21930; 88304; A9270; J0690; J1100; J2003; J2250; J2405; J2704; J3010; J7120

== ENCOUNTER 2025-05-02 14:03 | Outpatient (CLI) | payer OTHER, SELFPAY ==
--- NOTE | ~2025-05-02 | XR_ITS ---
[[id number] ] INDICATION: Rib pain. History of asthma. TECHNIQUE: Frontal projection of the upper right ribs, frontal projection of the lower right ribs, ob lique projection of all the right ribs, frontal inspiratory chest x-ray for interpretation. FINDINGS: There are no displaced rib fractures identified. There are no soft tissue abnormality see n. The lungs are clear. IMPRESSION: 1:No acute displaced rib fractures. Reviewed, dictated and finalized at location A.
== END 2025-05-02 14:04 | disposition home or self-care (01) ==
LOC: GOSHIMG 14:03
PROVIDERS: PCP Nurse Practitioner; Visit Provider Nurse Practitioner
DX: R07.81 Pleurodynia (principal)
CPT/HCPCS: 71101

== ENCOUNTER 2025-05-05 13:13 | Emergency (ER) | payer OTHER, SELFPAY ==
--- NOTE | ~2025-05-05 | CT_ITS ---
EXAMINATION: CT diagnostic chest wo con DATE: 05/05/2025 16:10 INDICATION: posterior and right lateral rib pain TECHNIQUE: Computed tomography (CT) of the chest was performed with 100 mL Omnipaque-350 intravenous contrast. Automated exposure control and iterative reconstruction technique were employed. The dose-l ength product was 785.72 mGy-cm. COMPARISON: X-ray chest 04/18/2019. FINDINGS: CHEST: Thoracic aorta: No significant dilation or calcification. Lung parenchyma and airways: Lungs and airways are clear. Thoracic inlet, axillae and chest wall: No thyroid or soft tissue mass. No axillary lymphadenopathy. Mediastinum: No mass or lymphadenopathy. Heart and pericardium: Normal heart size. No pericardial effusion. Coronary artery calcifications: Absent. Pleura: No effusion or mass. Upper abdomen: No significant finding. Thoracic bones: No acute osseous finding in the chest. IMPRESSION: No acute thoracic process detected. Reviewed, dictated and finalized at location K.
--- OUTSIDE RECORDS SUMMARY | 2025-05-05 13:15 | XMS_ITS ---
Author Organization [facility] Address [address] [place] [address] [address] [facility] [address] [place] [address] Care Team Providers Care Mine Superintendent Name Role Phone RATNA QUINN Primary Care Provider Jaky Luna Unavailable [phone] REASON FOR VISIT 1 month f/u Social History Sex Assigned At : Social History Observation Description Sex Assigned At Male Encounters Encounter Location Date Provider Diagnosis [facility] [address] [facility] [address] [place] [address] 05/03/2025 Jaky Mack Plan Of Treatment Next Appt Details Provider Name:Jaky patel, 05/17/2025 09:45:00 AM, [address], [facility] [address], [place], [address], Progress Notes * EDSON CORRIGANCHELITAOB: [birth year] (24 yo M)Acc No.[id number]:05/03/2025 Patient: YANETH VU Provider: PILLO GONCALVES :2000 A ge:24 Y S ex:Male Date:05/03/2025 Phone: [facility] Pcp:RATNA BURGOS Subjective: * Chief Complaints: * 1 . 1 month f/u. * Medical History: Objective: * Vitals: Assessment: Plan: * Treatment: * Billing Information: * Visit Code: * Procedure Codes: * Electronic signature of PILLO Delcid on 05/05/2025 at 01:15 PM CDT Sign off status: Pending * Provider: PILLO GONCALVES Date: 0 05/03/2025 Generated for Ella kline/Kathleen/Claudia on: 0 05/05/2025 01:15 PM CDT
--- OUTSIDE RECORDS SUMMARY | 2025-05-05 13:15 | XMS_ITS | Patient Health Record ---
Author Organization [facility] [employer] Address [address] [facility] [address] [place] [address] Care Team Providers Care Resident Program Specialist Name Role Phone JUAN DUNCAN-RATNA Forbes Primary Care Provider Areli ilJaky Ratliff Unavailable [phone] Martinez Zaldivar Unavailable [phone] Allergies No Known Allergies Results Component Value Reference Range Notes UDT Reviewed date:08/02/2024 04:43:39 PM Interpretation: Performing Lab: Notes/Report: THC POS 0 - 50 ng/ml Cocaine NEG 0 - 300 ng/ml Amphetamine NEG 0 - 1000 ng/ml Buprenorphine (BUP) NEG 0 - 10 ng/ml Secobarbital (Bar) NEG 0 - 300 ng/ml Oxazepam (BZO) NEG 0 - 300 ng/ml 4-tdbenhksia-7,3-nsbqbiie-4, 3-dipheny lpyrrolidine (EDDP) NG 0 - 300 ng/ml Methamphetamine (MET) NEG 0 - 1000 ng/ml Methylenedioxymethamphetamine (MDMA) NEG 0 - 500 ng/ml Morphine (MOP 300/LVW3917) NEG 0 - 300 ng/ml Methadone (MTD) NEG 0 - 300 ng/ml Phencyclidine (PCP) NEG 0 - 25 ng/ml Nortriptyline (TCA) NEG 0 - 1000 ng/ml Oxycodone NEG 0 - 300 ng/ml x NEG 0 - 300 ng/ml UDT Reviewed date:07/06/2024 05:03:32 PM Interpretation: Performing Lab: Notes/Report: THC Positive 0 - 50 ng/ml Cocaine Negative 0 - 300 ng/ml Amphetamine Negative 0 - 1000 ng/ml Buprenorphine (BUP) Negative 0 - 10 ng/ml Secobarbital (Bar) Negative 0 - 300 ng/ml Oxazepam (BZO) Negative 0 - 300 ng/ml 2-oogitfuscs-0,3-fmvkcwah-6, 3-dipheny lpyrrolidine (EDDP) Negative 0 - 300 ng/ml Methamphetamine (MET) Negative 0 - 1000 ng/ml Methylenedioxymethamphetamine (MDMA) Negative 0 - 500 ng/ml Morphine (MOP 300/WKA2056) Negative 0 - 300 ng/ml Methadone (MTD) Negative 0 - 300 ng/ml Phencyclidine (PCP) Negative 0 - 25 ng/ml Nortriptyline (TCA) Negative 0 - 1000 ng/ml Oxycodone Negative 0 - 300 ng/ml x Negative 0 - 300 ng/ml DRUG MONITOR, MARIJUANA META B, QN, URINE (77585) Reviewed date:11/20/2024 03:56:56 PM Interpretation: Performing Lab:[facility], [facility]faye [address], [id number] Ramin Grajeda, Director - [address] [facility] Notes/Report: FASTING: NO Marijuana Metabolite 10 <5 [...] analytical performance characteristics have been determined by [employer]. It has not been cleared or approved by the FDA. This assay has been validated pursuant to the CLIA regulations and is used for clinical purposes. Healthcare Providers needing Interpretation assistance, please contact us at [phone] ( ) M-F, 8am to 10pm EST Reason For Referral No Information Medications Medication SIG (Take, Route, Frequency, Duration) Notes Start Date End Date Status busPIRone HCl 5 MG 1 tablet Orally Twic e a day; Duration: 30 days 04/23/2025 05/23/2025 Active buPROPion HCl ER (XL) 300 MG 1 tablet in the morning Orally Once a day; Duration: 90 days Active lamoTRIgine 150 MG 1 tablet Orally twic e a day; Duration: 90 days Active hydrOXYzine Pamoate 25 MG 1 capsule Orally Once a day As needed Active Wegovy 2.4 MG/0.75ML 0.75 mL Subcutaneou s weekly Not-Taking Social History Tobacco Use: Social History Observation Description Date Details (start date - stop date) Never Smoker 08/16/2024 - NA Sex Assigned At : Social History Observation Description Sex Assigned At Male Household Question Answer Notes Marital status: single Number of adults in household: 2 Number of children in household: 0 Level of education: not finished college Tobacco Control (Standard) Question Answer Notes Tobacco use: Nonsmoker When did you start smoking? 08/16/2024 Problems Problem Type SNOMED Code ICD Code Onset Dates Problem Status W/U Status Risk Notes Problem Generalized anxiety disorder (70198220) EFE (generalized anxiety disorder) (F41.1) Active confirmed Problem Severe recurrent major depression without psychotic features (26781752) Severe episode of recurrent major depressive disorder, without psychotic features (F33.2) Active confirmed Problem Moderate recurrent major depression (28832535) MDD (major depressive disorder), recurrent episode, moderate (F33.1) Active confirmed Problem Mild recurrent major depression (74722657) MDD (major depressive disorder), recurrent episode, mild (F33.0) Active confirmed Problem Recurrent major depression (04894960) MDD (recurrent major depressive disorder) in remission (F33.40) Active confirmed Problem Nondependent cannabis abuse (322818743) Marijuana use (F12.90) Active confirmed Problem Anxiety (81037842) Anxiety (F41.9) Active confirmed Problem Severe major depression, single episode, without psychotic features (28105645) MDD (major depressive disorder), severe (F32.2) Active confirmed Vital Signs Heart Rate 69 /min 03/28/2025 Temperature 97.7 degrees Fahrenheit 07/06/2024 Height-cm 198.12 cm 03/28/2025 Blood pressure diastolic 79 mm Hg 03/28/2025 Weight-kg 149.69 kg 03/28/2025 Height 78 in 03/28/2025 Blood pressure systolic 130 mm Hg 03/28/2025 Weight 330 lbs 03/28/2025 BMI 38.13 kg/m2 03/28/2025 Encounters Encounter Location Date Provider Diagnosis [facility] [address] [place] [address] 07/06/2024 Martinez Clubb EFE (generalized anxiety disorder) F41.1 ; MDD (major depressive disorder), severe F32.2 and Marijuana use F12.90 [facility] [employer] [address] [place] [address] 07/23/2024 Martinez Clubb EFE (generalized anxiety disorder) F41.1 and MDD (major depressive disorder), severe F32.2 [facility] [employer] [address] [place] [address] 08/02/2024 Martinez Clubb EFE (generalized anxiety disorder) F41.1 and MDD (major depressive disorder), recurrent episode, moderate F33.1 [facility] [employer], [facility] [address] [place] [address] 08/22/2024 Martinez Clubb MDD (major depressiv e disorder), recurrent episode, moderate F33.1 and Anxiety F41.9 [employer], [employer] [address] [place] [address] 09/20/2024 Martinez Clubb MDD (recurrent major depressive disorder) in remission F33.40 and Anxiety F41.9 [employer], [facility] [address] [place] [address] 11/08/2024 Martinez Clubb Severe episode of recurrent major depressive disorder, without psychotic features F33.2 ; Suicidal ideations R45.851 and Anxiety F41.9 [facility] [employer], [facility] [address] [place] [address] 11/14/2024 Martinez Clubb Anxiety F41.9 and MD D (major depressive disorder), recurrent episode, mild F33.0 [employer] [address] [place] [address] 12/04/2024 Martinez Clubb Anxiety F41.9 and MD D (major depressive disorder), recurrent episode, mild F33.0 [employer] [address] [place] [address] 01/01/2025 Martinez Clubb Encounter for screen ing for depression Z13.31 ; Anxiety F41.9 and MDD (major depressive disorder), recurrent episode, mild F33.0 [facility], [facility] [address] [place] [address] 02/26/2025 Jaky Mack MDD (major depressiv e disorder), recurrent episode, mild F33.0 ; EFE (generalized anxiety disorder) F41.1 ; Encounter for screening for cardiovascular disorders Z13.6 and Encounter for screening for depression Z13.31 [facility], [facility] [address] [place] [address] 03/28/2025 Jaky Mack EFE (generalized anxiety disorder) F41.1 ; MDD (major depressive disorder), recurrent episode, mild F33.0 ; Encounter for screening for depression Z13.31 and Encounter for screening for cardiovascular disorders Z13.6 [facility], [facility] [address] [place] [address] 07/28/2024 Martinez Clubb [facility], [facility] [address] [place] [address] 07/29/2024 Martinez Clubb [facility], [facility] [address] [place] [address] 07/30/2024 Martinez Clubb [facility], [facility] [address] [place] [address] 07/30/2024 Martinez Clubb [facility], [facility] [address] [place] [address] 07/30/2024 Martinez Clubb [facility], [facility] [address] [place] [address] 09/04/2024 Martinez Clubb [facility], [facility] [address] [place] [address] 09/04/2024 Martinez Clubb [facility], [facility] [address] [place] [address] 09/04/2024 Martinez Clubb [facility], [facility] [address] [place] [address] 10/23/2024 Martinez Clubb [facility], [facility] [address] [place] [address] 10/30/2024 Martinez Clubb [facility], [facility] [address] [place] [address] 10/30/2024 Martinez Clubb [facility], [facility] [address] [place] [address] 11/06/2024 Martinez Clubb [facility], [facility] [address] [place] [address] 11/06/2024 Martinez Clubb [facility], [facility] [address] [place] [address] 11/08/2024 Martinez Clubb [facility], [facility] [address] [place] [address] 11/08/2024 Martinez Clubb [facility], [facility] [address] [place] [address] 11/08/2024 Martinez Clubb [facility], [facility] [address] [place] [address] 11/14/2024 Martinez Clubb [facility], [facility] [address] [place] [address] 12/22/2024 Martinez Clubb MDD (major depressiv e disorder), recurrent episode, mild F33.0 [facility], [facility] [address] [place] [address] 12/24/2024 Martinez Clubb [facility], [facility] [address] [place] [address] 12/31/2024 Martinez Clubb [facility], [facility] [address] [place] [address] 01/23/2025 Martinez Clubb [facility], [facility] [address] [place] [address] 01/23/2025 Martinez Clubb MDD (major depressiv e disorder), recurrent episode, mild F33.0 [facility], [facility] [address] [place] [address] 01/23/2025 Martinez Clubb [facility], [facility] [address] [place] [address] 02/16/2025 Martinez Clubb MDD (major depressiv e disorder), recurrent episode, mild F33.0 [facility], [facility] [address] [place] [address] 04/21/2025 Martinez Zaldivar [facility] [employer] [facility] [address] [place] [address] 04/22/2025 Jaky Mack [facility] [address] [place] [address] 04/24/2025 Jaky Mack Assessments Encounter Date Diagnosis (ICD Code) Assessment [...] and monitor symptoms - Encourage use of [employer] yoselin for direct provider communication 02/26/2025 EFE (generalized anxiety disorder) (ICD-10 - F41.1) 02/26/2025 MDD (major depressive disorder), recurrent episode, mild (ICD-10 - F33.0) 07/06/2024 MDD (major depressive disorder), severe (ICD-10 [...] and monitor symptoms - Encourage use of [employer] yoselin for direct provider communication 01/01/2025 Encounter for screening for depression (ICD-10 - Z13.31) Patient had reduction in suicidal ideation and/or behavior upon follow-up assessment within 120 days of index assessment (M1357). Patient had reduction in suicidal ideation and/or behavior upon follow-up assessment within 120 days of index assessment (M1357) 09/20/2024 MDD (recurrent major depressive disorder) in [...] usual. Are There Any Risks For Taking Agar For Long Periods Of Time? Hypothyroidism (low levels of thyroid hormone) may occur with long-term lithium use. Rare kidney problems have been associated with long-term use of lithium. The risk increases with high levels of lithium. Your doctor will monitor your kidney function at routine check-ups to ensure this does not occur. Summary of Black Box Warnings Agar Toxicity Agar toxicity is closely related to lithium blood levels and can occur at doses close to therapeutic levels; lithium levels should be monitored closely when starting the medication or if individuals experience side effects of the medication. 01/23/2025 MDD (major depressive disorder), recurrent episode, mild (ICD-10 - F33.0) 03/28/2025 EFE (generalized anxiety disorder) (ICD-10 - F41.1) 03/28/2025 MDD (major depressive disorder), recurrent episode, mild (ICD-10 - F33.0) 02/16/2025 MDD (major depressive disorder), recurrent episode, mild (ICD-10 - F33.0) 12/22/2024 MDD (major depressive disorder), recurrent episode, mild (ICD-10 - F33.0) 12/04/2024 Anxiety (ICD-10 - F41.9) Patient had reduction in suicidal ideation and/or behavior upon follow-up assessment within 120 days of index assessment (M1357). Patient had reduction in suicidal ideation and/or behavior upon follow-up assessment within 120 days of index assessment (M1357) 11/14/2024 MDD (major depressive disorder), recurrent episode, [...] doctor or pharmacist will give you the reclamation kettle tender's patient information sheet (Medication Guide) when you begin treatment with lamotrigine and each time you refill your prescription. Read the information carefully and ask your doctor or pharmacist if you have any questions. You can also visit the Food and Drug Administration (FDA) website (https://www.fda .gov/Drugs/DrugS afety/gvr194851. htm) or the reclamation kettle tender's website to obtain the Medication Guide. Assessment [...] seek emergency services. discussed crisis prevention hotline 378. Patient had reduction in suicidal ideation and/or behavior upon follow-up assessment within 120 days of index assessment (M1357) 11/14/2024 Anxiety (ICD-10 - F41.9) Patient had reduction in suicidal ideation and/or behavior upon follow-up assessment within 120 days of index assessment (M1357) 08/22/2024 MDD (major depressive disorder), recurrent episode, [...] positive THC test for a job at [employer]. - patient denied marijuana use and is [...] medication supply. - Patient plans to attend [facility] in the future. 08/22/2024 Anxiety (ICD-10 - [...] positive THC test for a job at [employer]. - patient denied marijuana use and is [...] plans to attend [facility] in the future. 08/02/2024 EFE (generalized anxiety disorder) (ICD-10 - [...] Refill hydroxyzine and sertraline prescriptions. Send to [facility]. 9. Crisis Management - Plan: Remind him of crisis hotline (694) for suicidal thoughts or emergencies. 10. Follow-Up [...] seek emergency services. discussed crisis prevention hotline 538. 1. Major Depressive Disorder - He reports [...] Refill hydroxyzine and sertraline prescriptions. Send to [facility]. 9. Crisis Management - Plan: Remind him of crisis hotline (763) for suicidal thoughts or emergencies. 10. Follow-Up - Appointment scheduled for August 21 to reassess progress and medication adjustments. 07/23/2024 EFE (generalized anxiety disorder) (ICD-10 - [...] c. Discuss importance of sobriety with new [employer] zero-tolerance policy. 5. Sexual Dysfunction - Patient [...] c. Discuss importance of sobriety with [employer] zero-tolerance policy. 5. Sexual Dysfunction - Patient [...] 120 days of index assessment (M1357) 12/04/2024 MDD (major depressive disorder), recurrent episode, mild (ICD-10 - F33.0) Patient had reduction in suicidal ideation and/or behavior upon follow-up assessment within 120 days of index assessment (M1357). Patient had reduction in suicidal ideation and/or behavior upon follow-up assessment within 120 days of index assessment (M1357) 11/08/2024 Anxiety (ICD-10 - F41.9) 03/28/2025 Encounter for screening for depression (ICD-10 - Z13.31) 01/01/2025 Anxiety (ICD-10 - F41.9) Patient had [...] Depressive Disorder (MDD) - Current depression level: 10/10 - Symptoms: hypersomnia, loss of appetite, difficulty [...] and monitor symptoms - Encourage use of [employer] yoselin for direct provider communication 03/28/2025 Encounter for screening for cardiovascular disorders (ICD-10 - Z13.6) 01/01/2025 MDD (major depressive disorder), recurrent episode, mild (ICD-10 - F33.0) Patient had reduction in suicidal ideation and/or behavior upon follow-up assessment within 120 days of index assessment (M1357). Patient had reduction in suicidal ideation and/or behavior upon follow-up assessment within 120 days of index assessment (M1357) 02/26/2025 Encounter for screening for cardiovascular disorders (ICD-10 - Z13.6) 02/26/2025 Encounter for screening for depression (ICD-10 - Z13.31) 07/06/2024 Other Learning About Depression Screening material [...] and monitor symptoms - Encourage use of [employer] yoselin for direct provider communication 07/23/2024 Other [...] time. d. Instruct contacting provider or texting [phone] if suicidal thoughts occur. 2. Generalized Anxiety [...] consumption. c. Discuss importance of sobriety with [employer] zero-tolerance policy. 5. Sexual Dysfunction - Patient [...] Refill hydroxyzine and sertraline prescriptions. Send to [facility]. 9. Crisis Management - Plan: Remind him of crisis hotline (028) for suicidal thoughts or emergencies. 10. Follow-Up [...] positive THC test for a job at [employer]. - patient denied marijuana use and is [...] medication supply. - Patient plans to attend [facility] in the future. 11/08/2024 Other Lamotrigine may [...] doctor or pharmacist will give you the reclamation kettle tender's patient information sheet (Medication Guide) when you begin treatment with lamotrigine and each time you refill your prescription. Read the information carefully and ask your doctor or pharmacist if you have any questions. You can also visit the Food and Drug Administration (FDA) website (https://www.fda .gov/Drugs/DrugS afety/zuz104669. htm) or the reclamation kettle tender's website to obtain the Medication Guide. 1. Major Depressive Disorder - Patient reports recurring suicidal thoughts without plan or intent. - Depression rated as 8/10. - No history of manic episodes. - Plan: a. Start Agar and Lamotrigine simultaneously . b. Small dose of Agar for one week to address suicidal thoughts. c. Initiate Lamotrigine 25 mg daily for 2 weeks, then increase to 50 mg daily. d. Monitor for side effects, particularly Varghese-Johnso n syndrome. e. Advise patient to avoid alcohol while on Agar. f. Schedule follow-up in one week. 2. [...] is 11/15/24, polyuria expected to stop after discontinuatio n. 3. Lamotrigine Titration - Currently on week one at 25 mg. - Continue plan: week two at 25 mg, week three at 50 mg. - Assess effectiveness at 100 mg before considering increase to 200 mg. - Monitor for Varghese-Johnso n syndrome signs, including rashes. - Instruct patient to check back regularly. - If more than 3 days missed, return to 25 mg. 4. Agar Discontinuatio n - One more day of lithium remaining. [...] PHQ-9: 14 - Patient rates depression at 10. - Monitor for changes in depressive symptoms. - Note patient experiences mood fluctuations. 8. Psychotic Symptoms - Patient denies hallucinations , delusions, or paranoia. - Continue monitoring for [...] current medications. - Patient is aware of Romero-Johnso n syndrome risk with lamotrigine and seizure risk [...] within 120 days of index assessment (M1357) 02/26/2025 Other Increase Lamictal to 150mg BID for depression Cont Wellbutrin 300mg daily Patient educated on all medications including potential benefits, side effects, risks. Educated on proper dosing schedule and importance of compliance. Cont counseling Previous records reviewed for continuity of care -Assessment and treatment plan reviewed with patient. -Compliance with treatment plan importance discussed. -Discussed the risks/benefits of this medication -Discussed medication side effects. -Contact office if symptoms worsen. -Discussed that it can take up to 6-8 weeks to see full therapeutic effects of psychotropic medications. -Crisis prevention hotline 988. 03/28/2025 Other Stable on current medication regimen, continue at current doses, declines need for medication adjustment. -Refills sent in today -No concerns today Patient educated on all medications including potential benefits, side effects, risks. Educated on proper dosing schedule and importance of compliance. Cont counseling -Assessment and treatment plan reviewed with patient. -Compliance with treatment plan importance discussed. -Discussed the risks/benefits of this medication -Discussed medication side effects. -Contact office if symptoms worsen. -Discussed that it can take up to 6-8 weeks to see full therapeutic effects of psychotropic medications. -Crisis prevention hotline 988. Plan Of Treatment Next Appt Details Provider Name:Jaky Carmina patel, 05/17/2025 09:45:00 AM, [address], [facility] [address], [place], [address], Insurance Providers Payer Name Payer Address Payer Phone Subscriber Number Group Number Insured Name Patient Relationship to Insured Coverage Start Date Coverage End Date [employer] [address] [place] [address] [id number] YANETH ESPINOZA Self - patient is the insured Medical [...]
--- OUTSIDE RECORDS SUMMARY | 2025-05-05 13:15 | XMS_ITS | Clinical Summary ---
Author Organization [facility] [employer] Address [address] [place] [place] [address] Care Team Providers Care Outsole Leveler Name Role Phone Sheila Corona MD Primary Care Provider [phone] Source Comments [facility] Affiliates and Associated Physician Practices is amultiple site organization consisting of ambulatory clinics and hospital sitesin [place], [place], [place] and [place]. This disclosure is being madepursuant to the Care Everywhere program and may not contain all information available regarding this patient. Last updated 18.[facility] [employer] Allergies No known active allergies Medications * Be aware that medications may not be up to date on this document. Alwaysverify current medications with the patient. sertraline (ZOLOFT) 100 MG tablet Take 100 [...] Recorded Sex Assigned at Not on file Legal Sex Male 2:26 PM CDT Gender Identity Not on file Sexual Orientation [...] 12:35 PM CDT Height 195.6 cm (6' 5) 02/12/2021 12:35 PM CDT Body Mass Index [...] season) 2024 DEPRESSION SCREENING 10/10/2024 INFLUENZA VACCINE (#1) 2025 ZOSTER VACCINE (1 of 2) 2052 HIB VACCINE Aged Out No longer eligi ble based on patient's age to complete this topic MENINGOCOCCAL GROUPS A/C/Y/W VACCINE Aged Out No longer eligible b ased on patient's age to complete this topic PNEUMOCOCCAL VACCINE Aged Out No long er eligible based on patient's age to complete this topic Insurance SELF PAY NO INSURANCE Member Subscriber Plan / Payer (Ef fective for All Dates) Name:Yaneth Crawford Member ID:Not on file Relation to Subscriber:Not on file Name:YANETH CRAWFORD Subscriber ID:Not on file (Home) Address: [address] [place] [phone] Payer ID:Not on file Group ID:Not on file Type:Self Pay Address: [place], [place] [employer] Care Teams Outsole Leveler Relationship Specialty Start Date End Date Sheila Corona MD [address] [place] [address] PCP - General Pediatrics 01/17/18
[2025-05-05 13:16] VITALS: BP 148/95; PULSE 64; RESP 16; TEMP 36.2; O2SAT 99
--- OUTSIDE RECORDS SUMMARY | 2025-05-05 15:38 | XMS_ITS | Clinical Summary ---
Author Organization [facility] [employer] Address [address] [place] [address] Care Team Providers Care Legal Research Analyst Name Role Phone Sheila Corona MD Primary Care Provider [phone] Source Comments [facility],non-[facility] Affiliates and Associated Physician Practices is amultiple site organization consisting of ambulatory clinics and hospital sitesin [place], [place], [place] and [place]. This disclosure is being madepursuant to the Care Everywhere program and may not contain all information available regarding this patient. Last updated 18.[facility] [employer] Allergies No known active allergies Medications * [...] CRAWFORD Subscriber ID:Not on file (Home) Address: [address] [place] [phone] Payer ID:Not on file Group ID:Not on file Type:Self Pay Address: [place], [place] [employer] [employer] Care Teams Legal Research Analyst Relationship Specialty Start Date End Date Sheila Corona MD [address] [place] [address] PCP - General Pediatrics 01/17/18
--- NOTE | 2025-05-05 16:02 | ED_ITS ---
HPI - General Adult General Chief complaint: Back Pain/Injury Stated complaint: BACK, RIB PAIN BACK Time Seen by Provider: 05/05/25 15:15 History of Present Illness HPI narrative: 24-year-old male presents to the emergency department for evaluation for worsening right-sided back and rib pain. Patient works at a [employer] in on Tuesday he woke up having worsening right-sided back and right lateral rib pain. Patient did take medication for pain control but states that did not help. Patient did have follow-up with urgent care on had negative chest x-ray patient was started on Medrol Dosepak provided baclofen. Patient states the symptoms continue to worsen. Patient does describe worsening pain when moving the right arm and when taking deep breath. Related Data Home Medications ?Medication ?Instructions ?Recorded ?Confirmed ?Last Taken ?Type bupropion HCl 300 mg 24 hr tablet, 300 mg PO DAILY 10/23/24 05/02/25 01/18/25 History extended release lamotrigine 100 mg tablet 200 mg PO DAILY 01/10/25 05/02/25 01/18/25 History buspirone 5 mg tablet 5 mg PO BID 05/02/25 05/02/25 Unknown History Allergies Allergy/AdvReac Type Severity Reaction Status Date / Time No Known Allergies Allergy Verified 05/05/25 15:15 [facility] Past Medical History Medical History (Reviewed 05/02/25 @ 13:38 by Bertha Chambers [facility]) Morbid obesity with body mass index of 40.0-44.9 in adult COVID Irritable bowel syndrome (IBS) Anxiety Lipoma Encounter to establish care Surgical History Surgical History History of lipoma 01/18/25 Excision 6 total subcutaneous masses from multiple sites-left forearm 2.8 cm; left lower quadrant 3 cm; left mid abdomen 3.5 cm; epigastrium 4 cm; occipital scalp 1.7 cm; lumbar back 2.5 cm; Dr. Shea H/O wisdom tooth extraction 2019 Hx of tonsillectomy 2007 Family History Family History Mother Depression Heart disease Father Depression Heart disease Sibling Depression Grandparent Heart disease Social History Social History (Reviewed 05/02/25 @ 13:38 by Bertha Chambers [facility]) Social History: Caffeine-coffee/soda, energy drinks and pre-workout Smoking status: Never smoker Alcohol intake: never Substance use: never Do You Feel Safe in your Home?: Yes Lack of Transportation: No Lack of Food: Never True Current Housing: I Have Housing Concerned About Future Housing: No Difficulty Paying Gas/Electric Bills: No Difficulty Paying for Meds: No Currently Unemployed: No Education: High School Diploma/GED Difficulty w/ Childcare or Family Care: No Living arrangements: with family Spiritual care concerns: No Exam Narrative: APPEARANCE: Well appearing, no pain, no distress, well-nourished. HEAD: normocephalic, atraumatic. EYES: PERRLA/EOMI, conjunctivae clear. NOSE: Normal no drainage EARS:TMS clear with good light reflex. THROAT: Pharynx clear, no exudate. NECK: Supple. No adenopathy, no masses. RESPIRATORY: Lung sounds are clear to auscultation bilaterally CARDIOVASCULAR: Regular rate and rhythm without murmurs rubs or gallops. ABDOMINAL: Soft, nontender, nondistended, normal bowel sounds MUSCULOSKELETAL: Right paraspinal muscular tenderness to palpation and right lateral rib tenderness to palpation, no crepitus, NEURO: Alert. Cranial nerves II through XII intact. Good gait. Good coordination SKIN: Warm, dry. Normal Color Course Vital Signs Vital signs: Vital Signs Temperature 97.2 F L 05/05/25 13:16 Pulse Rate 64 05/05/25 13:16 Respiratory Rate 16 05/05/25 13:16 Blood Pressure 148/95 H 05/05/25 13:16 Pulse Oximetry 99 05/05/25 13:16 Temperature 97.2 F L 05/05/25 13:16 Pulse Rate 64 05/05/25 13:16 Respiratory Rate 16 05/05/25 13:16 Blood Pressure 148/95 H 05/05/25 13:16 Pulse Oximetry 99 05/05/25 13:16 Medical Decision Making [facility] Narrative Medical decision making narrative: 24-year-old male presents emergency department for evaluation reproducible right-sided chest wall tenderness to palpation. CT was negative for rib fractures, pneumonia, pneumothorax. Patient is already on a Medrol Dosepak and is taking baclofen. Patient will be provided additional medication for pain control. Patient also provided incentive spirometer. Patient was updated the results of the workup. Patient was comfortable plan for discharge and close follow-up. Differential Diagnosis Differential Diagnosis: Pneumothorax, hemothorax, rib fracture, pulmonary contusion, pneumonia, rib contusion Vital Signs Vital Signs: Vital Signs Temperature 97.2 F L 05/05/25 13:16 Pulse Rate 64 05/05/25 13:16 Respiratory Rate 16 05/05/25 13:16 Blood Pressure 148/95 H 05/05/25 13:16 Pulse Oximetry 99 05/05/25 13:16 Temperature 97.2 F L 05/05/25 13:16 Pulse Rate 64 05/05/25 13:16 Respiratory Rate 16 05/05/25 13:16 Blood Pressure 148/95 H 05/05/25 13:16 Pulse Oximetry 99 05/05/25 13:16 Imaging Data Radiologist's impression: Impressions Chest CT 05/05/25 16:39 IMPRESSION: No acute thoracic process detected. Discharge Plan Discharge Clinical Impression: Rib pain Patient Disposition: Home Condition: Stable Instructions: Antibiotic Form, How to Use an Incentive Spirometer (ED), Rib Fracture (ED), Flank Pain (ED) Additional Instructions: Ibuprofen for pain control. Medrol Dosepak as directed. Continue her baclofen. [place] as needed for additional pain control. Incentive spirometer as directed. Have close follow-up with your primary care physician. Patient Language: Slovenian Prescriptions: New hydrocodone-acetaminophen 5-325 mg tablet 1 tablet PO Q12H PRN (Reason: pain) Qty: 10 0RF No Action bupropion HCl 300 mg tablet extended release 24 hr 300 mg PO DAILY buspirone 5 mg tablet 5 mg PO BID methylprednisolone [Medrol (Nam)] 4 mg tablets,dose pack See Rx Instructions PO PER PKG DIR Qty: 21 0RF Rx Instructions: PO PER PKG DIR baclofen 10 mg tablet 10 mg PO BID PRN (Reason: muscle spasm) Qty: 30 0RF lamotrigine 100 mg tablet 200 mg PO DAILY Wegovy 1.7 mg/0.75 mL pen injector 1.7 mg subcut WEEKLY Qty: 3 0RF Rx Instructions: administer weeks 13 through 16 of therapy Follow-up/Referrals: Anson Aleman, [Primary Care Provider] -
[2025-05-05] MEDS: HYDROcodone/acetaminophen (*CRX) 10-325 MG TABLET 1 TAB PO (16:20)
== END 2025-05-05 17:35 | disposition home or self-care (01) ==
PROVIDERS: Emergency Provider Emergency Medicine; PCP Internal Medicine
DX: R07.81 Pleurodynia (principal); K58.9 Irritable bowel syndrome, unspecified; F41.9 Anxiety disorder, unspecified; Z86.16 Personal history of COVID-19
CPT/HCPCS: 71250; 99284; A9270